=== PATIENT | female | born 1985 | race Caucasian/White ===

== ENCOUNTER 2020-10-16 08:11 | Outpatient (REF) | payer OTHER, SELFPAY ==
[2020-10-17 08:53] LABS: BV Int Neg Control Negative (Negative); BV Int Pos Control Positive (Positive)
[2020-10-17 13:32] LABS: C. trachomatis RNA TMA NOT DETECTED (NOT DETECTED); N. gonorrhoeae RNA TMA NOT DETECTED (NOT DETECTED)
[2020-10-20 06:57] LABS: HPV mRNA E6/E7 rflx Not Detected (Not Detected)
== END 2020-10-16 08:12 | disposition home or self-care (01) ==
LOC: HO.LAB 08:11
PROVIDERS: PCP Internal Medicine; Visit Provider Advanced Practice Midwife
DX: Z01.419 Encounter for gynecological examination (general) (routine) without abnormal findings (principal); E10.65 Type 1 diabetes mellitus with hyperglycemia; E66.01 Morbid (severe) obesity due to excess calories; B37.2 Candidiasis of skin and nail; Z68.42 Body mass index [BMI] 45.0-49.9, adult; Z20.2 Contact with and (suspected) exposure to infections with a predominantly sexual mode of transmission; Z88.8 Allergy status to other drugs, medicaments and biological substances
CPT/HCPCS: 36415; 87480; 87491; 87510; 87591; 87624; 87660; 88142; 99395

== ENCOUNTER → 2021-05-09 13:07 | Outpatient (BNVA) | payer OTHER, SELFPAY | PROVIDERS: PCP Internal Medicine; Referring Provider Internal Medicine; Visit Provider Physician Assistant ==

== ENCOUNTER → 2021-06-01 07:07 | Outpatient (BNVA) | payer OTHER, SELFPAY | PROVIDERS: PCP Internal Medicine; Visit Provider Surgery ==

== ENCOUNTER → 2021-07-09 08:06 | Outpatient (BNVA) | payer OTHER, SELFPAY | PROVIDERS: PCP Internal Medicine; Visit Provider Surgery ==

== ENCOUNTER 2021-07-12 10:21 | Outpatient (REF) | payer OTHER, SELFPAY ==
--- NOTE | ~2021-07-12 | XR_ITS ---
EXAMINATION: XR CHEST CLINICAL INFORMATION: Morbid obesity due to excess calories COMPARISON: None TECHNIQUE: 2 views of the chest were obtained. FINDINGS: Normal symmetric lung volumes. No parenchymal consolidation. No pleural effusion. No pneumothorax. Cardiomediastinal silhouette and pulmonary vascularity are within normal limits. No acute osseous abnormalities. XR/XR chest 2V IMPRESSION: Unremarkable examination.
--- NOTE | 2021-07-12 10:35 | ECG_ITS ---
Test Reason : obesity Blood Pressure : / mmHG Vent. Rate : 077 BPM Atrial Rate : 077 BPM P-R Int : 148 ms QRS Dur : 084 ms QT Int : 388 ms P-R-T Axes : 071 045 031 degrees QTc Int : 439 ms Normal sinus rhythm Normal ECG No previous ECGs available Referred By: Kingsley Vidal Electronically Signed By:KHOA STRINGER MD
[2021-07-12 10:51] LABS: MANUAL DIFF FLAG NO
[2021-07-12 11:25] LABS: Basophils Percent Auto 0.6 % (0-2); Eosinophils Absolute Auto 0.2 X10*3/uL (0.0-0.4); Eosinophils Percent Auto 3.5 % (0-4); Hematocrit 38.4 % (37-47); Hemoglobin 12.4 g/dl (12.0-16.0); Imm Gran Abs Auto 0.02 X10*3/uL (0.00-0.03); Imm Gran Pct Auto 0.4 % (0.0-0.4); Lymphocytes Absolute Auto 1.5 X10*3/uL (1.2-4.9); Lymphocytes Percent Auto 30.8 % (20-40); Mean Corpuscular HGB Conc 32.3 g/dl (31.0-35.0); Mean Corpuscular Hemoglobin 26.6 pg (27.0-33.0); Mean Corpuscular Volume 82.4 fL (80-98); Mean Platelet Volume 11.2 fL (9.4-12.3); Monocytes Absolute Auto 0.4 X10*3/uL (0.1-1.2); Monocytes Percent Auto 8.8 % (2-11); Neutrophils Absolute Auto 2.7 X10*3/uL (2.0-8.3); Neutrophils Percent Auto 55.9 % (45-73); Platelet Count 249 X10*3/uL (160-400); Red Blood Count 4.66 X10*6/uL (4.20-5.50); White Blood Count 4.9 X10*3/uL (4.8-10.8)
[2021-07-12 11:40] LABS: Estimated Average Glucose 266 mg/dL; Hemoglobin A1c % 10.9 %
[2021-07-12 11:41] LABS: Alanine Aminotransferase 14 U/L (0-31); Albumin Level 4.1 g/dL (3.5-5.0); Alkaline Phosphatase 138 U/L (39-117); Anion Gap 14 (12-20); Aspartate Amino Transferase 12 U/L (5-31); Bilirubin Total 0.3 mg/dL (0.0-1.0); Blood Urea Nitrogen 12 mg/dL (9-16); C Reactive Protein 4.59 mg/dL (< or = 0.50); Calcium 9.3 mg/dL (8.4-10.2); Carbon Dioxide 24 mmol/L (22-29); Chloride 105 mmol/L (96-108); Cholesterol 246 mg/dL; Estimated Glomerular Filt Rate > 60; Glucose Random 92 mg/dL (60-115); HDL Cholesterol 65 mg/dL; Iron 32 mcg/dL (30-160); LDL Cholesterol Calculated 158 mg/dl; Percent Iron Saturation 11 % (15-50); Potassium 3.9 mmol/L (3.3-5.1); Sodium 139 mmol/L (135-145); Total Iron Binding Capacity 301 mcg/dL (228-428); Total Protein 6.9 g/dL (6.5-8.0); Triglycerides 116 mg/dL; Unsaturated Iron Binding 269 ug/dL
[2021-07-12 11:55] LABS: HBsAGNum1 0.17 S/CO (0.00-0.99); HIV AB/AG Nonreactive (Nonreactive); HIV Num 1 0.08 S/CO (0.00-0.99); Hepatitis B Surface Antigen Negative (Negative); ~HepC Num1 0.04 S/CO (0.00-0.79); ~Hepatitis C Antibody Nonreactive (Nonreactive)
[2021-07-12 12:04] LABS: Ferritin 73 ng/mL (10-122); Insulin 17 uU/mL (2-29); TSH reflex Free T4 3.57 uIU/mL (0.32-4.0); Vitamin D 25-OH Total 9.6 ng/mL (>30)
[2021-07-12 12:35] LABS: Folate 11.8 ng/mL (> or = 4.0); Vitamin B12 319 pg/mL (200-900)
[2021-07-13 04:17] LABS: Syphilis Screen Nonreactive (Nonreactive)
[2021-07-13 15:51] LABS: Calcium (PTHI) 9.3 mg/dL (8.6-10.2); PTHI 64 pg/mL (14-64)
[2021-07-17 00:27] LABS: Zinc 64 mcg/dL (60-130)
[2021-07-17 17:26] LABS: Vitamin A 37 mcg/dL (38-98)
[2021-07-18 15:12] LABS: Vitamin B1 10 nmol/L (8-30)
== END 2021-07-12 10:22 | disposition home or self-care (01) ==
LOC: HO.XRAY 10:21
PROVIDERS: Advanced Practice Midwife; PCP Internal Medicine; Visit Provider Surgery
DX: E10.65 Type 1 diabetes mellitus with hyperglycemia (principal); E78.5 Hyperlipidemia, unspecified; I10 Essential (primary) hypertension; Z20.2 Contact with and (suspected) exposure to infections with a predominantly sexual mode of transmission; E66.01 Morbid (severe) obesity due to excess calories
CPT/HCPCS: 36415; 71046; 80053; 80061; 82306; 82607; 82728; 82746; 83036; 83525; 83540; 83970; 84425; 84443; 84590; 84630; 85025; 86140; 86780; 86803; 87340; 87389; 93005

== ENCOUNTER 2021-07-18 13:24 | Outpatient (REF) | payer OTHER, SELFPAY ==
[2021-07-20 10:10] LABS: H Pylori Breath Test Negative (Negative)
== END 2021-07-18 13:25 | disposition home or self-care (01) ==
LOC: HO.LNP 13:24
PROVIDERS: Surgery; PCP Internal Medicine; Referring Provider Internal Medicine; Visit Provider Physician Assistant Surgical
DX: Z11.0 Encounter for screening for intestinal infectious diseases (principal)
CPT/HCPCS: 83013; 99211

== ENCOUNTER → 2021-07-24 12:25 | Outpatient (BNVA) | payer OTHER, SELFPAY | PROVIDERS: PCP Internal Medicine; Referring Provider Internal Medicine; Visit Provider Dietitian, Registered | DX: E66.01 Morbid (severe) obesity due to excess calories (principal); Z68.42 Body mass index [BMI] 45.0-49.9, adult | CPT/HCPCS: 97802 ==

== ENCOUNTER → 2021-08-06 07:57 | Outpatient (BNVA) | payer OTHER, SELFPAY | PROVIDERS: PCP Internal Medicine; Visit Provider Surgery ==

== ENCOUNTER 2021-08-08 09:33 | Outpatient (REF) | payer OTHER, SELFPAY ==
--- NOTE | ~2021-08-08 | FL_ITS ---
EXAMINATION: FL UPPER GI WITH AIR-CONTRAST. CLINICAL INFORMATION: Morbid severe obesity due to excess calories. COMPARISON: None TECHNIQUE: A routine upper GI air-contrast study was performed in the upright, supine and prone lying positions. FINDINGS: Following oral administration of thick barium and effervescent granules, there is normal propagation of the bolus from the oral cavity through the pharynx, esophagus into the stomach without any evidence of obstruction, narrowing or stricture. On placing the patient supine and prone, the course, caliber and peristalsis of the stomach, duodenal bulb and the sweep are normal. The mucosal pattern of the stomach and the duodenum is normal. FLUOROSCOPY TIME: 1.8 minutes DOSE AREA PRODUCT: 40.237 uGy-m2 (microgray-meter squared) FL/FL upper GI series IMPRESSION: Moderate gastroesophageal reflux without hiatal hernia.
--- NOTE | ~2021-08-08 | US_ITS ---
EXAMINATION: US COMPLETE ABDOMEN WITH LIVER ELASTOGRAPHY CLINICAL INFORMATION: Obesity COMPARISON: None. TECHNIQUE: Real-time imaging of the abdominal viscera. Noninvasive ultrasound liver fibrosis assessment is performed using Koko ElastPQ point quantification shear wave elastography (pSWE) with a C5-2 MHz transducer. Multiple elastography samples are obtained. FINDINGS: PANCREAS: The visualized pancreatic head and body are normal in appearance. The remainder of the pancreas is obscured from visualization by the overlying bowel gas. ABDOMINAL AORTA: The proximal, middle, and distal aortic segments are normal in caliber. INFERIOR VENA CAVA: Visualized portions are normal. LIVER: Liver echotexture is increased. The liver is enlarged. The liver contour is normal. No focal lesion or intrahepatic biliary duct dilatation. The right lobe measures 21 cm in length. The left lobe measures 13 cm in length. Portal flow is normal/hepatopedal Shear wave liver elastography median stiffness is 1.07 m/s (reference: normal median stiffness is 1.3 m/s or less). IQR/median stiffness to assess sampling precision is 0.14 (reference: good quality data set is IQR/median stiffness of 0.15 or less). GALLBLADDER: Normal. The gallbladder is physiologically distended without evidence of stones, sludge, polyps, wall thickening or pericholecystic fluid. COMMON BILE DUCT: Normal in caliber measuring 0.3 cm in diameter. RIGHT KIDNEY: Normal. No hydronephrosis. No renal calculi or focal parenchymal lesions. The kidney measures 12.7 cm in maximum dimension. LEFT KIDNEY: Normal. No hydronephrosis. No renal calculi or focal parenchymal lesions. The kidney measures 11.9 cm in maximum dimension. SPLEEN: Slightly enlarged.. The spleen measures 13.7 cm in maximum dimension. FREE FLUID: None. US/US abdomen comp w elastography IMPRESSION: 1. Impression: Enlarged echogenic liver probably representing fatty infiltration. Slightly enlarged spleen. Limited visualization of the tail the pancreas. 2. Liver elastography: Adequate liver sampling. Normal liver stiffness. REFERENCE: Society of Radiologists in Ultrasound Liver Stiffness Thresholds (2020): LIVER STIFFNESS THRESHOLDS: *Liver Stiffness equal or less than 1.3 m/s: High probability of being normal. *Liver Stiffness less than 1.7 m/s: In the absence of other known clinical signs, rules out compensated advanced chronic liver disease. *Liver Stiffness 1.7-2.1 m/s: Suggestive of compensated advanced chronic liver disease but need further test for confirmation. *Liver Stiffness over 2.1 m/s: Rules in compensated advanced chronic liver disease. *Liver Stiffness over 2.4 m/s: Suggestive of clinically significant portal hypertension. QUALITY OF DATA SET: *IQR/Median value equal or less than 0.15 implies a quality data set. *IQR/Median value over 0.15 implies a poor quality data set. SIGNIFICANT CHANGE FROM PRIOR EXAM: Significant change if liver stiffness measurement is 10% or greater from prior exam. OTHER CONSIDERATIONS: The stage of liver fibrosis may be overestimated in the setting of acute hepatitis, liver inflammation, elevated liver function tests, hepatic vascular congestion, obstructive cholestasis, non-fasting state, and infiltrative diseases such as amyloidosis and lymphoma. In some patients with NAFLD, the liver stiffness thresholds for compensated advanced chronic liver disease may be lower. In causes other than viral hepatitis and NAFLD, liver stiffness thresholds are not well established.
== END 2021-08-08 09:34 | disposition home or self-care (01) ==
LOC: HO.US 09:33
PROVIDERS: PCP Internal Medicine; Visit Provider Surgery
DX: E10.65 Type 1 diabetes mellitus with hyperglycemia (principal); E78.5 Hyperlipidemia, unspecified; I10 Essential (primary) hypertension; E66.01 Morbid (severe) obesity due to excess calories
CPT/HCPCS: 74240; 76705; 76981

== ENCOUNTER → 2021-08-10 13:13 | Outpatient (BNVA) | payer OTHER, SELFPAY | PROVIDERS: PCP Internal Medicine; Referring Provider Internal Medicine; Visit Provider Physician Assistant ==

== ENCOUNTER 2021-09-10 08:06 | Outpatient (REF) | payer OTHER, SELFPAY ==
[2021-09-11 05:47] LABS: CT PCR NOT DETECTED (Not Detect.); NG PCR NOT DETECTED (Not Detect.)
== END 2021-09-10 08:07 | disposition home or self-care (01) ==
LOC: HO.LAB 08:06
PROVIDERS: Advanced Practice Midwife; PCP Internal Medicine; Visit Provider Surgery
DX: Z20.2 Contact with and (suspected) exposure to infections with a predominantly sexual mode of transmission (principal); E66.01 Morbid (severe) obesity due to excess calories
CPT/HCPCS: 87491; 87591

== ENCOUNTER → 2021-10-18 09:40 | Outpatient (BNVA) | payer OTHER, SELFPAY | PROVIDERS: PCP Internal Medicine; Referring Provider Internal Medicine; Visit Provider Physician Assistant ==

== ENCOUNTER → 2021-10-19 07:03 | Outpatient (BNVA) | payer OTHER, SELFPAY | PROVIDERS: PCP Internal Medicine; Visit Provider Surgery ==

== ENCOUNTER → 2021-10-26 08:13 | Outpatient (BNVA) | payer OTHER, SELFPAY | PROVIDERS: PCP Internal Medicine; Visit Provider Surgery ==

== ENCOUNTER → 2021-11-01 15:12 | Outpatient (BNVA) | payer OTHER, SELFPAY | PROVIDERS: PCP Internal Medicine; Referring Provider Internal Medicine; Visit Provider Surgery ==

== ENCOUNTER → 2021-11-02 09:05 | Outpatient (BNVA) | payer OTHER, SELFPAY | PROVIDERS: PCP Internal Medicine; Referring Provider Internal Medicine; Visit Provider Surgery ==

== ENCOUNTER → 2021-11-05 14:43 | Outpatient (BNVA) | payer OTHER, SELFPAY | PROVIDERS: PCP Internal Medicine; Referring Provider Internal Medicine; Visit Provider Physician Assistant Surgical ==

== ENCOUNTER 2021-11-06 08:00 | Inpatient (IN) | payer OTHER, SELFPAY ==
[2021-10-31 16:10] VITALS: BMI 42.3
[2021-11-01 10:20] LABS: MANUAL DIFF FLAG NO
[2021-11-01 10:35] LABS: Basophils Percent Auto 0.6 % (0-2); Eosinophils Absolute Auto 0.2 X10*3/uL (0.0-0.4); Eosinophils Percent Auto 3.8 % (0-4); Hematocrit 40.3 % (37.0-47.0); Hemoglobin 12.7 g/dl (12.0-16.0); Imm Gran Abs Auto 0.02 X10*3/uL (0.00-0.03); Imm Gran Pct Auto 0.4 % (0.0-0.4); Lymphocytes Absolute Auto 0.9 X10*3/uL (1.2-4.9); Lymphocytes Percent Auto 17.3 % (20-40); Mean Corpuscular HGB Conc 31.5 g/dl (31.0-35.0); Mean Corpuscular Hemoglobin 26.6 pg (27.0-33.0); Mean Corpuscular Volume 84.5 fL (80.0-98.0); Mean Platelet Volume 10.9 fL (9.4-12.3); Monocytes Absolute Auto 0.4 X10*3/uL (0.1-1.2); Monocytes Percent Auto 6.9 % (2-11); Neutrophils Absolute Auto 3.7 x10*3/uL (2.0-8.3); Platelet Count 241 X10*3/uL (160-400); Red Blood Count 4.77 X10*6/uL (4.20-5.50); Red Cell Distribution Width 12.9 % (11.0-16.0); White Blood Count 5.3 X10*3/uL (4.8-10.8)
[2021-11-01 10:46] LABS: Estimated Average Glucose 258 mg/dL; Hemoglobin A1c % 10.6 %
[2021-11-01 10:48] LABS: Prothrombin Time 11.3 SEC (9.9-13.0)
[2021-11-01 10:51] LABS: Partial Thromboplastin Time 37.2 SEC (24.1-38.0)
[2021-11-01 10:53] LABS: Alanine Aminotransferase 17 U/L (0-31); Albumin Level 3.7 g/dL (3.5-5.0); Alkaline Phosphatase 111 U/L (39-117); Anion Gap 15 (12-20); Aspartate Amino Transferase 19 U/L (5-31); Bilirubin Total 0.5 mg/dL (0.0-1.0); Blood Urea Nitrogen 9 mg/dL (9-16); C Reactive Protein 4.68 mg/dL (< or = 0.50); Calcium 9.1 mg/dL (8.4-10.2); Carbon Dioxide 24 mmol/L (22-29); Chloride 104 mmol/L (96-108); Cholesterol 279 mg/dL; Creatinine Clr Calc Pharmacy 134.1; Estimated Glomerular Filt Rate > 60; Glucose Random 293 mg/dL (60-115); HDL Cholesterol 50 mg/dL; LDL Cholesterol Calculated 195 mg/dl; Potassium 4.5 mmol/L (3.3-5.1); Sodium 138 mmol/L (135-145); Total Protein 6.5 g/dL (6.5-8.0); Triglycerides 173 mg/dL
[2021-11-01 11:21] LABS: TSH reflex Free T4 3.09 uIU/mL (0.32-4.0)
[2021-11-01 12:05] LABS: Insulin 4 uU/mL (2-29)
--- NOTE | 2021-11-02 23:28 | P.HPSUR_ITS ---
Pre-Procedural Eval Section A Date of Service: 11/02/21 The patient is an INPATIENT: Yes The History & Physical has been completed within 30 days and I have reviewed it.: Yes Section B Chief Complaint: obesity Relevant Family History (Specify if Yes): No Relevant Social History: None Present Medications: None Medical History: No relevant PMH History of Previous Operations: No relevant previous surgery Allergies: Allergies Allergy/AdvReac Type Severity Reaction Status Date / Time insulin glargine Allergy Unknown malaise/fal Verified 10/26/21 15:04 [Lantus U-100 Insulin] ls Review of Systems Sugical H&P ROS: Negative: Constitution, Cardiovascular, Respiratory, Neurological, Psychiatric, Hem-Onc, Allergic/Immunologic, Gastrointestinal, Genitourinary, Musculoskeletal, Integumentary, Endocrine and Eyes /Ears/Nose/Throat Exam Surgical H&P Exam: Normal: HEENT, Normal: Heart, Normal: Lungs, Normal: Extremities, Normal: Abdomen, Normal: Skin and Normal: Neurological Plan Diagnosis/Plan: Unchanged I have reviewed the history and physical and performed a pertinent physical examination on my patient. No changes have occurred unless specified.
--- NOTE | 2021-11-05 12:26 | P.CONAN_ITS ---
Documented by User: Manda Johnston NP 11/05/21 12:27 HPI - Anesthesia Eval Consult details Narrative: 36yo F for Gastrectomy Sleeve,EGD,poss diaphragmatic hernia,poss ventral hernia,poss open, PMFSH Active Problems Active Problems: All Active Problems (Updated 08/01/21 @ 19:48 by Kingsley Vidal MD) Vitamin B12 deficiency (Acute) Vitamin A deficiency (Acute) Adjustment disorder, unspecified (Acute) Hyperlipidemia (Acute) Hypertension (Acute) Morbid obesity (Acute) Lumbar spine pain (Acute) Family history of cancer (Acute) Diabetes mellitus type 1, uncontrolled (Acute) Past Medical History Medical History Chronic fatigue Diabetes mellitus type 1, uncontrolled Elevated TSH Hyperlipidemia Hypertension Morbid obesity Morbid obesity with BMI of 45.0-49.9, adult Subclinical hypothyroidism Yeast infection Family History Family History (Updated 05/31/21 @ 14:45 by José Miguel Mcdonough Westley) Father Hx of diabetes mellitus Cardiovascular disease Mother S/P lumpectomy of breast Maternal Grandfather Family hx of colon cancer Sister Lymphoma Maternal Aunt Brain cancer Daughter No problems noted. Son Legally blind Epilepsia Surgical History Surgical History Hx of tubal ligation Social History Social History (Updated 05/31/21 @ 14:46 by José Miguel Mcdonough Westley) Are you a primary critical care rn to a significant other at home: No Do you presently have visiting nurse or other home services: Yes ([employer] for 12 year old son) Alcohol intake: never Patient Tobacco Use Status: Never used Tobacco Use of substances other than those prescribed or required for medical reasons: No Have you been hit, kicked, punched, or otherwise hurt by someone within the past year? If so, by whom?: No Are you DNR?: No Advance Directives: No Advance Directives Information Provided: Yes Advance Directives on File: No Recently lost weight without trying: No Patient : No FDLMP: 10/25/2021 : No Poor oral hygiene: No Gender identity: Female Meds Allergies Allergy/AdvReac Type Severity Reaction Status Date / Time insulin glargine Allergy Unknown malaise/fal Verified 11/06/21 08:21 [Lantus U-100 Insulin] Home Medications Medication Instructions Recorded Confirmed Last Taken Type atorvastatin 20 mg tablet 20 mg PO DAILY 07/17/20 10/26/21 Unknown History valsartan 40 mg tablet 40 mg PO DAILY 07/17/20 10/26/21 Unknown History ondansetron HCl 4 mg tablet 4 mg PO Q12H PRN 11/03/21 11/03/21 Unknown History Exam Exam Date and Time: November 05, 2021 1226 Height,Weight and Vital Signs: Height 5 ft 8 in Weight 126.099 kg Pertinent Lab Results Pertinent Lab Results: Laboratory Tests 11/01/21 11/01/21 11/01/21 10:10 10:18 10:18 WBC 5.3 RBC 4.77 Hgb 12.7 Hct 40.3 MCV 84.5 MCH 26.6 L MCHC 31.5 RDW 12.9 Plt Count 241 MPV 10.9 Immature Gran % (Auto) 0.4 Neut % (Auto) 71.0 Lymph % (Auto) 17.3 L [place] % (Auto) 6.9 Eos % (Auto) 3.8 Baso % (Auto) 0.6 Lymph # (Auto) 0.9 L [place] # (Auto) 0.4 Eos # (Auto) 0.2 Baso # (Auto) 0.0 Abs Immat Gran (auto) 0.02 Absolute Neuts (auto) 3.7 Absolute Nucleated RBC 0.000 Nucleated RBC % (auto) 0.0 PT 11.3 INR 1.0 APTT 37.2 Sodium Potassium Chloride Carbon Dioxide Anion Gap BUN Creatinine Estim Creat Clear Calc Estimated GFR Random Glucose Estimat Average Glucose Hemoglobin A1c % Insulin Level Calcium Total Bilirubin AST ALT Alkaline Phosphatase C-Reactive Protein Total Protein Albumin Triglycerides Cholesterol LDL Cholesterol, Calc HDL Cholesterol TSH Blood Type O Positive Antibody Screen NEGATIVE 11/01/21 11/01/21 10:18 10:18 WBC RBC Hgb Hct MCV MCH MCHC RDW Plt Count MPV Immature Gran % (Auto) Neut % (Auto) Lymph % (Auto) [place] % (Auto) Eos % (Auto) Baso % (Auto) Lymph # (Auto) [place] # (Auto) Eos # (Auto) Baso # (Auto) Abs Immat Gran (auto) Absolute Neuts (auto) Absolute Nucleated RBC Nucleated RBC % (auto) PT INR APTT Sodium 138 Potassium 4.5 Chloride 104 Carbon Dioxide 24 Anion Gap 15 BUN 9 Creatinine 0.82 Estim Creat Clear Calc 134.1 Estimated GFR > 60 Random Glucose 293 H Estimat Average Glucose 258 Hemoglobin A1c % 10.6 Insulin Level 4 Calcium 9.1 Total Bilirubin 0.5 AST 19 D ALT 17 Alkaline Phosphatase 111 C-Reactive Protein 4.68 H Total Protein 6.5 Albumin 3.7 Triglycerides 173 Cholesterol 279 LDL Cholesterol, Calc 195 HDL Cholesterol 50 D TSH 3.09 Blood Type Antibody Screen Narrative Narrative: EKG 06/2021 Vent. Rate : 077 BPM ? ? Atrial Rate : 077 BPM ?? P-R Int : 148 ms? QRS Dur : 084 ms ? ? QT Int : 388 ms ? ? ? P-R-T Axes : 071 045 031 degrees ?? QTc Int : 439 ms ? Normal sinus rhythm Normal ECG No previous ECGs available Assessment and Plan Assessment Anesthesia Assessment: Chart Reviewed Documented by User: Phyllis Mcdonald MD 11/06/21 10:03 [facility] Past Medical History Medical History Chronic fatigue Diabetes mellitus type 1, uncontrolled Elevated TSH Hyperlipidemia Hypertension Morbid obesity Morbid obesity with BMI of 45.0-49.9, adult Subclinical hypothyroidism Yeast infection Family History Family History (Updated 05/31/21 @ 14:45 by KYA Santiago) Father Hx of diabetes mellitus Cardiovascular disease Mother S/P lumpectomy of breast Maternal Grandfather Family hx of colon cancer Sister Lymphoma Maternal Aunt Brain cancer Daughter No problems noted. Son Legally blind Epilepsia Family history of problems with anesthesia: No Surgical History Surgical History Hx of tubal ligation History of Problems with Anesthesia: No Social History Social History (Updated 05/31/21 @ 14:46 by KYA Santiago) Are you a primary critical care rn to a significant other at home: No Do you presently have visiting nurse or other home services: Yes ([employer] for 12 year old son) Alcohol intake: never Patient Tobacco Use Status: Never used Tobacco Use of substances other than those prescribed or required for medical reasons: No Have you been hit, kicked, punched, or otherwise hurt by someone within the past year? If so, by whom?: No Are you DNR?: No Advance Directives: No Advance Directives Information Provided: Yes Advance Directives on File: No Recently lost weight without trying: No Patient : No FDLMP: 10/25/2021 : No Poor oral hygiene: No Gender identity: Female Meds Allergies Allergy/AdvReac Type Severity Reaction Status Date / Time insulin glargine Allergy Unknown malaise/fal Verified 11/06/21 08:21 [Lantus U-100 Insulin] Home Medications Medication Instructions Recorded Confirmed Last Taken Type atorvastatin 20 mg tablet 20 mg PO DAILY 07/17/20 10/26/21 Unknown History valsartan 40 mg tablet 40 mg PO DAILY 07/17/20 10/26/21 Unknown History ondansetron HCl 4 mg tablet 4 mg PO Q12H PRN 11/03/21 11/03/21 Unknown History Exam Airway Mallampati Class: II TM Dist: >3cm Neck ROM: Full Assessment and Plan Assessment Anesthesia Assessment: Anesthesia Plan Discussed Final Anesthetic Review Family History of Problems with Anesthesia: No History of Problems with Anesthesia: No NPO: Yes ASA Class: III Final Preanesthetic Review: No Changes in Pt Med Stat, Meds/Allgs Chart Reviewed, Consent Obtained/Reviewed and Anes Risks/Benef Reviewed Patient Risk: Intermediate Procedure Risk: Intermediate Anesthetic Plan Anesthetic Plan: GA Disposition: Standard PACU and Inp. Admit - Standard Bed
[2021-11-05 15:10] LABS: COVID-19 Test Negative (Negative)
[2021-11-06] VITALS (9 sets, daily range): BP systolic 135–176; BP diastolic 65–96; PULSE 78–96; RESP 14–18; TEMP 36.5–36.8; O2SAT 97–100
[2021-11-06 08:16] LABS: Glucose, Whole Blood 315 mg/dL (60-115)
--- NOTE | 2021-11-06 08:40 | HE.PHANOTE ---
PATIENT OWN NOVOLOG MIX 70/30 FLEXPEN USING PATIENT OWN INJECTABLES GOES AGAINST CURRENT P&T POLICY. LANTUS DOES NOT WORK FOR PATIENT AND ALSO LISTED AN ADVERSE REACTION. PER MANAGEMENT ALLOWING PATIENT TO USE OWN INSULIN, ONE TIME DOSE ENTERED.
[2021-11-06] MEDS: Lactated Ringers 1,000 ML 100 ML IVCONT ×3 (09:05→21:49)
[2021-11-06] MEDS: Lactated Ringers 1,000 ML 999 ML IV (09:05)
[2021-11-06 10:16] LABS: Glucose, Whole Blood 284 mg/dL (60-115)
--- NOTE | 2021-11-06 12:51 | PM.OP ---
Brief Operative Note Date of Service: 11/06/21 Pre-op diagnosis: Refractory morbid obesity and comorbidities (see below) Post-op diagnosis: same Procedure: INITIAL PATIENT BMI ON PRESENTATION AT OUR OFFICE: 47.2 kg/m2 LAST BMI BEFORE SURGERY: 42.5 kg/m2 COMORBIDITIES: insulin dependent diabetes, hyperlipidemia, hypertension, hypothyroidism, back pain, GERD, liver steatosis, hepatomegaly ?The patient presented to the Weight Management Program with significant obesity that was negatively impacting the patient's comorbidities as listed above.? The program is a phased program with a special focus on preoperative medical weight management to promote substantial weight loss and prepare the patients for the second phase of the program: bariatric surgery. The patient participated in an intensive weekly lifestyle ?intervention and exercise program during which the patient ?has lost between the initial office visit and the last preoperative visit 30.8lbs, or 9.92% of initial actual body weight. It was deemed appropriate for the patient to now have bariatric surgery. In light of the current Covid-19 pandemic and the well documented strong association of obesity and increased risk of worse outcomes if infected with Covid-19 (REFERENCES:https://pubmed.ncbi.nlm.nih.gov/62596418/,?https://pubmed.ncbi.nlm.nih.gov/74163609/), any delay in undergoing bariatric surgery may lead to the patient's worsening health condition and increased?risk of more severe Covid-19 disease if infected. In addition a recent?study from [facility] published in [facility] on 09/17/2021 ([email or web address]) found that, among patients with obesity, substantial weight loss achieved with surgery was associated with improved outcomes of COVID-19 infection. The findings suggest that obesity can be a modifiable risk factor for the severity of COVID-19 infection. In addition, the patient met the BMI-criteria for bariatric surgery based on the BMI on initial presentation. The patient should not be penalized for achieving such weight loss because ?it is not sustainable long-term without surgical intervention and it was achieved in preparation for bariatric surgery ?under my direction and based on my published research ([email or web address]).pdf and?https://www.soard.org/article/[email or web address](97)41330-X/pdf) ?that a 10% preoperative weight loss improves long-term weight loss after surgery and reduces perioperative complications.? Insurance carriers such as [facility] have endorsed my recommendations ?and have included in their policies criteria to include a 10% preoperative weight loss requirement. PROCEDURE: Esophago-gastroscopy, laparoscopic sleeve gastrectomy and laparoscopic gastropexy INDICATIONS: This is a 36 year-old female who was electively scheduled for laparoscopic, possibly open sleeve gastrectomy. The risks and complications of the procedure were discussed with the patient in advance, particularly the possibility of ; pulmonary embolism; staple line leak; bleeding; GERD; cardiac, pulmonary, or renal complications; as well as long-term problems such as insufficient weight loss, vitamin deficiency, strictures, or ulcers. The patient understood all the risks, and was in agreement to proceed with surgery. DESCRIPTION OF PROCEDURE: After informed consent was obtained from the patient, the patient was given preoperative antibiotics, and was transferred to the operating room. After successful induction of general anesthesia, pneumatic compression devices were placed on both lower extremities. An upper endoscopy was performed next. The oropharynx and esophagus appeared to be within normal limits. There was no diaphragmatic hernia present, consistent with the findings of the preoperative upper GI. The stomach was entered. Then after all fluid and air were suctioned and the stomach was fully decompressed, the scope was withdrawn and secured in the mid esophagus. The patient was then prepped and draped in the usual sterile manner, and abdominal access was established at the right upper quadrant with the Mireya technique. A 12 mm blunt port was inserted, and the abdomen was insufflated with CO2 to a pressure of 15 mmHg. Under direct visualization, additional ports were placed, specifically two 5 mm Versi-step ports to the left upper quadrant, and a 5 mm Versi-Step port to the right upper quadrant. 1% lidocaine plain was used to infiltrate all port sites as well as all fascia defects. Following that, the patient was placed in a steep reverse Trendelenburg position. An additional 5 mm port was placed to the right flank for the Mediflex retractor that was used to retract the left lobe of the liver. The gastro-esophageal fat pad was opened with the ultrasonic device (Thunderbeat, Olympus) and the anterior esophagus and hiatus were exposed. The angle of His was opened with the ultrasonic device the fundus of the stomach from any diaphragmatic and splenic attachments. I then opened the gastrocolic ligament between the transverse colon and the greater curvature of the stomach with the ultrasonic device to enter the lesser sac and facilitate the ligation of the short gastric vessels. I started at a mid-point along the greater curvature and using the Thunderbeat, all short gastric vessels were divided all the way to the angle of His until the left patel was completely dissected at its entirety. I then divided the gastro-colic ligament distally to a distance of about 3-4 cm proximal to the esophagus. The stomach was then divided transversely with one Endo THUY-45 purple and 4 THUY-60 articulating orange loads using the AEON stapler and loads. Every effort was made that the gastric sleeve had a tubular shape and an even caliber throughout. Once the sleeve resection was completed, the staple line of the gastric sleeve was reinforced with Hemoclips. The resected stomach was retrieved without difficulty from the Mireya port. A gastropexy was then performed in order to prevent postoperative GERD and partial gastric volvulus. Several interrupted 2.0 Surgidac sutures were placed between the sleeve's staple line and the previously divided greater omentum and gastro-colic ligament using the Endo-Stitch device. ?An upper endoscopy was performed. There was no narrowing at the GE junction. The scope was easily advanced all the way to the pylorus which was clearly visualized. There was no narrowing anywhere and the sleeve's caliber was even throughout. The sleeve's staple line was inspected and there was no evidence of ischemia, bleeding or dehiscence. At that point the gastroscope was withdrawn from the patient?s mouth while we were decompressing the bowel and the stomach from any remaining air. I looked into the lesser sac to see how the sleeve was situating and it was situating well. There was no bleeding from the staple line, spleen, or short gastric vessels. The Mediflex retractor was removed, and the undersurface of the liver was inspected and there was no bleeding. The patient was placed in supine position. I closed the fascial defect of the 12 mm port site with a figure of eight #1 Polysorb suture. Then 100 cc 0.25 % Marcaine plain with 10 mg of Dexamethasone were used to infiltrate the fascial closure as well as all skin incisions. At this point, the abdomen was deflated, all ports were removed under direct vision, and no bleeding was noted from any of the port sites. The skin incisions were irrigated with saline and were closed with 4-0 absorbable monofilament sutures. Steri-Strips and OpSites were used to cover all incisions. The patient was extubated and was transferred in stable condition to the recovery room for further care. I was present and performed all nguyen parts of the procedure. Ms. Shaikh was the records management assistant. There were no residents to assist with this case. Hamilton Vidal MD, PhD, FACS Surgeon: Kingsley Vidal MD Anesthesia: GETA, local and other (TAP block) Was an Dielectric Press Operator used for this Procedure?: Yes Dielectric Press Operator: Joslyn Shaikh Estimated blood loss (mL): 10 IV fluids (mL): 3,000 Urine output (mL): 0 (No Rodriguez to record) Pathology: other (Stomach) Condition: stable Disposition: PACU
--- NOTE | 2021-11-06 12:55 | PM.PNGS ---
Subjective Subjective Date of Service: 11/07/21 Interval history: Patient has mild incisional pain, but was able to ambulate and use the incentive spirometer. She is tolerating phase 1 bariatric diet Physical Exam Vital Signs: Vital Signs: Last Vital Signs Temp 97.7 F 11/06/21 12:44 Pulse 89 11/06/21 12:49 Resp 16 11/06/21 12:49 BP 152/89 H 11/06/21 12:49 Pulse Ox 97 11/06/21 12:49 BMI result Body Mass Index 42.3 GI: Inspection: Yes normal to inspection, Yes incision (clean, dry and intact) and Yes obesity Extrem: Right lower extremity: normal to inspection (no calf tenderness) Left lower extremity: normal to inspection (no calf tenderness) Objective Data Active Medications Hydromorphone HCl (Hydromorphone Hcl 0.5 Mg/0.5 Ml Syringe) 0.5 mg IVPUSH Q5M PRN; Protocol PRN Reason: Pain, Severe (Pain Scale 7-10) Lactated Ringer's (Lr) 1,000 mls @ 100 mls/hr IVCONT .Q10H ELSY Last Admin: 11/06/21 09:05 Dose: 100 mls/hr Documented by: ANIL Promethazine HCl 12.5 mg/ (Sodium Chloride) 50.5 mls @ 202 mls/hr IV ONCE PRN PRN Reason: Nausea and Vomiting Ondansetron HCl (Ondansetron Hcl 4 Mg/2 Ml Vial) 4 mg IVPUSH ONCE PRN PRN Reason: Nausea and Vomiting Labs CBC & Chem 7: 11/07/21 05:17 11/07/21 05:17 Labs: Laboratory Results - last 24 hr 11/05/21 11/06/21 11/06/21 14:35 07:06 10:10 POC Glucose 315 H 284 H COVID-19 (JERI) Negative COVID-19 Clin Com See Note Procedures Date of Service Date of Service: 11/07/21 Progress Note: A&P Assessment and plan (1) Status post sleeve gastrectomy: Status: Acute Assessment and Plan: s/p laparoscopic sleeve gastrectomy and gastropexy Doing well Check am labs. If OK, will discharge home? (2) Morbid obesity: Status: Acute (3) Diabetes mellitus type 1, uncontrolled: Status: Acute (4) Hypertension: Status: Acute (5) Hyperlipidemia: Status: Acute (6) GERD (gastroesophageal reflux disease): Status: Acute (7) Migraines: Status: Acute (8) Depression: Status: Acute (9) Anxiety: Status: Acute (10) Cyst, ovary, dermoid: Status: Acute Fall Risk Details Current Medications: Current Medications Hydromorphone HCl (Hydromorphone Hcl 0.5 Mg/0.5 Ml Syringe) 0.5 mg IVPUSH Q5M PRN; Protocol PRN Reason: Pain, Severe (Pain Scale 7-10) Lactated Ringer's (Lr) 1,000 mls @ 100 mls/hr IVCONT .Q10H ELSY Last Admin: 11/06/21 09:05 Dose: 100 mls/hr Documented by: Promethazine HCl 12.5 mg/ (Sodium Chloride) 50.5 mls @ 202 mls/hr IV ONCE PRN PRN Reason: Nausea and Vomiting Ondansetron HCl (Ondansetron Hcl 4 Mg/2 Ml Vial) 4 mg IVPUSH ONCE PRN PRN Reason: Nausea and Vomiting Time Spent With Patient Time: Total time spent is greater than 50% in coordination of care (as documented) at patient's floor/unit and/or counseling patient: Time with patient: less than 15 minutes Quality Stroke Does the patient have a stroke diagnosis?: No VTE Prior VTE?: No VTE Risk Level:: Surgical - moderate VTE Device Contraindication: N/A - Device Ordered VTE Drug Contraindication: Treatment Not Indicated
--- NOTE | 2021-11-06 12:55 | PM.DS ---
DS: Providers Provider Date of Service: 11/07/21 Date of admission: 11/06/21 08:00 Primary care physician: Rafi Neil MD DS: Summary Hospital Course Hospital Course: ADMITTING DIAGNOSIS: morbid obesity, Type I DM, hyperlipidemia, HTN DISCHARGE DIAGNOSIS: same, s/p laparoscopic sleeve gastrectomy PAST SURGICAL HISTORY: none PROCEDURE: upper endoscopy, laparoscopic sleeve gastrectomy DISCHARGE SUMMARY: History of Present Illness: The patient is a 36 year-old woman with a BMI of 47.2 kg/m2 and associated co-morbidities as described above. The patient had extensive work-up,lost 32 lbs preoperatively and was electively scheduled for laparoscopic, possible open sleeve gastrectomy and gastropexy. Risks and complications of the surgery were discussed with the patient in advance, particularly the possibility of , pulmonary embolism, anastomotic leak, bleeding, bowel injury, GERD, cardiac, renal or pulmonary complications. The patient understood all the risks and was in agreement with the surgical plan. Hospital Course: The patient underwent an uneventful laparoscopic sleeve gastrectomy with gastropexy and repair of diaphragmatic hernia on the day of admission. Postoperatively, the patient was transferred to the surgical floor. The patient received IV Acetaminophen and IV dilaudid for pain control. Patient was started on bariatric phase 1 diet POD #0. On postoperative day one, the patient was feeling well without nausea, vomiting, fevers, or tachycardia. The patient had some mild incisional pain and the abdomen was soft. On the morning of postoperative day one, the patient was continued on 1 ounce of water or ice every half hour. During the day, the patient did fairly well, having some incisional pain, but able to ambulate adequately and to tolerate liquids well. Since the patient is doing well, we decided that the patient was ready to be discharged. The patient was given instructions to follow-up with me next week and to call my office for any fever over 101, persistent abdominal pain, nausea, vomiting, GERD, symptoms of DVT such as calf tenderness, or leg swelling, or pulmonary embolism such as chest pain or shortness of breath. The patient was also instructed to drink 40-60 ounces of liquids per day using the 1-ounce cups. The patient had been given prescriptions for Tylenol for pain, Zofran prn for nausea, and pantoprazole and carafate previously. The patient was encouraged to ambulate and use the incentive spirometer. The patient was allowed to shower, but no baths, and encouraged to stay active at home. All of these instructions were given to the patient personally. All questions were answered and the patient understood all instructions, the instructions were also given to the patient in print. Time Spent with Patient Time attestation: Total time spent providing and/or coordinating discharge services: Discharge coordination time: Less than 30 minutes Quality: Stroke Does the patient have a stroke diagnosis?: No Physical Exam Vital Signs: Vital Signs: Last Vital Signs Temp 97.7 F 11/06/21 12:44 Pulse 89 11/06/21 12:49 Resp 16 11/06/21 12:49 BP 152/89 H 11/06/21 12:49 Pulse Ox 97 11/06/21 12:49 BMI result Body Mass Index 42.3 DS: Data Data Completed and Pending Pending studies at discharge: Pending at discharge 11/06/21 12:01 Surgical [PTH] Routine Labs on day of discharge: Laboratory Results - last 24 hr 11/05/21 11/06/21 11/06/21 14:35 07:06 10:10 POC Glucose 315 H 284 H COVID-19 (JERI) Negative COVID-19 Clin Com See Note Discharge Plan Discharge Anticipated Discharge Date/Time: 11/07/21 10:51 Patient Disposition: Home, Self-Care Discharge Diagnosis: s/p sleeve gastrectomy Referrals: Rafi Neil MD [Primary Care Provider] - 1 Week Discharge Medications: Continued atorvastatin 20 mg Tablet 20 mg PO DAILY 0RF valsartan 40 mg Tablet 40 mg PO DAILY 0RF ondansetron HCl 4 mg tablet 4 mg PO Q12H PRN (Reason: Nausea And Vomiting) 0RF nystatin 100,000 unit/gram ointment 1 appl topical BID Qty: 30 1RF pantoprazole 40 mg tablet,delayed release (DR/EC) 40 mg PO DAILY Qty: 30 2RF sucralfate 100 mg/mL suspension 10 ml PO BID Qty: 400 2RF Held insulin asp prt-insulin aspart [Novolog Mix 70-30FlexPen U-100] 100 unit/mL (70-30) insulin pen See Rx Instructions subcut DAILY Qty: 15 6RF Hold Instructions: Discuss dosing with Dr Vidal Rx Instructions: 53 units in the am, 55 units in the pm subcut daily; Discontinued vitamin A palmitate 10,000 unit capsule 10,000 unit PO .COMPLEX Qty: 30 1RF Rx Instructions: 10,000 units PO one per day; cholecalciferol (vitamin D3) 125 mcg (5,000 unit) capsule 125 mcg PO DAILY Qty: 30 2RF mecobalamin (vitamin B12) 1,000 mcg tablet,disintegrating 1,000 mcg sublingual DAILY Qty: 30 2RF Rx Instructions: place tablet under tongue and allow to dissolve for at least30 secs before swallowing nystatin 100,000 unit/gram powder 1 appl topical DAILY Qty: 30 1RF polyethylene glycol 3350 [Miralax] 17 gram powder in packet 17 g PO DAILY Qty: 14 0RF Rx Instructions: Mix each packet with 8oz of water and do 7 packets on 11/04/21 and another 7 packets on 11/05/21 Discharge Orders: Discharge Order (Routine); Ordered 11/07/21 Ordered By: Kingsley Vidal Diet: other Activity on Discharge: No heavy lifting Stand Alone Forms: Patient Portal Discharge page Care Plan Goals: weight loss Health Concerns: morbid obesity Plan of Treatment: No tub baths, sex or returning to work until discussed at first post op appointment. No exercise, alcohol, tobacco or illegal drug use. Continue to use incentive spirometer hourly while awake. Walk in home for 5- 10 minutes every 2 hours during the first week. Continue phase 1 diet today and start phase 2 diet tomorrow morning. Follow all instructions in the bariatric handbook and call with any questions. 1. Please call your doctor or come back to the emergency room should any new symptoms arise. 2. You will receive a courtesy call from [facility] 24-48 hours after discharge. 3. Activity: abstain from alcohol, practice limited stair climbing, no bending, no driving, no exercise, no illicit substances, no lifting, no sex, no tub bath, no work. 4. Diet: continue as discussed with Dr. Vidal. 5. Dressing Change/Wound Care: Do not change or remove surgical dressings unless they are wet or soiled. 6. Call your doctor if: - Your temperature exceeds 101.5 F - You experience excessive pain or swelling - You have an unexpected reaction to medication - You have excessive bleeding - You experience continued vomiting/nausea - Your incision begins to separate - Your incision shows signs of infection such as increased redness, swelling, excessive pain, heat, or drainage (light blood or clear fluid is normal) 7. General instructions: No lifting greater than 5 lbs for the next 4 weeks[address] driving within 24 hours of taking narcotic pain medications. If you do not move your bowels in the next 2 days, please take milk of magnesia over the counter. Please follow the post op diet and do not advance your diet until you are seen in the office in about 2 weeks. Please walk around your home every hour or two to prevent blood clots from forming in your legs. You do not need to wake from sleeping to walk. Please sleep in a bed or couch to prevent kinking at the hips and knees. Please take your incentive spirometer (your lung ground school instructor) home with you and use it for the next few days to prevent pneumonias. You may shower, no hot tubs, baths or swimming pools. Please call the office with any questions or concerns such as increasing abdominal pain, fever, chills, shortness of breath, chest pain, leg pain or swelling, or redness or drainage from your incisions. Do not hesitate to contact the office with any questions at . The patient's medical history has been reviewed and they are considered low risk for post op DVT and therefore DVT prophylaxis is not considered necessary. Travel after surgery was reviewed. The patient has not disclosed any travel plans during the first 30 days after surgery and they have been advised that within the first 30 days after surgery any bus, plane, train or car travel over 2 hours in duration is contraindicated due to the possibility of developing blood clots from immobility. Any travel, needs to include periods of ambulation of 10 minutes in duration every 2 hours. The patient was instructed to discuss any plans for travel during this period with their bariatric surgeon. Assessment: stable, post op sleeve gastrectomy Discharge Date/Time: 11/07/21 09:15
[2021-11-06 14:03] LABS: Hematocrit 39.8 % (37.0-47.0); Hemoglobin 12.8 g/dl (12.0-16.0)
[2021-11-06] MEDS: Famotidine/PF 20 MG/2 ML VIAL IVPUSH ×2 (14:15→20:13)
[2021-11-06 14:23] LABS: Anion Gap 15 (12-20); Blood Urea Nitrogen 8 mg/dL (9-16); Calcium 9.3 mg/dL (8.4-10.2); Carbon Dioxide 25 mmol/L (22-29); Chloride 103 mmol/L (96-108); Creatinine Clr Calc Pharmacy 148.7; Estimated Glomerular Filt Rate > 60; Glucose Random 220 mg/dL (60-115); Potassium 3.9 mmol/L (3.3-5.1); Sodium 139 mmol/L (135-145)
[2021-11-06 14:39] LABS: Glucose, Whole Blood 229 mg/dL (60-115)
[2021-11-06] MEDS: Metoclopramide HCl 10 MG/2 ML VIAL IVPUSH (15:11)
[2021-11-06 15:35] LABS: Glucose, Whole Blood 209 mg/dL (60-115)
[2021-11-06] MEDS: Insulin Lispro 100 UNIT/ML 3 ML VIAL SUBCUT ×3 (15:46→23:04)
[2021-11-06] MEDS: ceFAZolin Sodium/Dextrose,Iso 2 GM/50 ML PIGGYBACK IV (16:30)
[2021-11-06 20:04] LABS: Glucose, Whole Blood 210 mg/dL (60-115)
[2021-11-06] MEDS: ondansetron HCL 4 MG/2 ML VIAL IVPUSH (20:13)
[2021-11-06] MEDS: 0.9 % Sodium Chloride Flush 3 ML SYRINGE IVFLUSH (20:21)
[2021-11-06 23:01] LABS: Glucose, Whole Blood 208 mg/dL (60-115)
[2021-11-07] VITALS: BP 136/70; PULSE 98; RESP 18; TEMP 36.9; O2SAT 99
[2021-11-07 02:04] LABS: Glucose, Whole Blood 199 mg/dL (60-115)
[2021-11-07] MEDS: Insulin Lispro 100 UNIT/ML 3 ML VIAL SUBCUT ×2 (02:16→06:21)
[2021-11-07 03:36] VITALS: BP 129/77; PULSE 83; RESP 18; TEMP 36.8; O2SAT 98
[2021-11-07] MEDS: ondansetron HCL 4 MG/2 ML VIAL IVPUSH (03:43)
[2021-11-07 05:48] LABS: MANUAL DIFF FLAG NO
[2021-11-07 05:54] LABS: Glucose, Whole Blood 205 mg/dL (60-115)
[2021-11-07 05:58] LABS: Basophils Percent Auto 0.1 % (0-2); Eosinophils Percent Auto 0.3 % (0-4); Hematocrit 35.4 % (37.0-47.0); Hemoglobin 11.5 g/dl (12.0-16.0); Imm Gran Abs Auto 0.01 X10*3/uL (0.00-0.03); Imm Gran Pct Auto 0.1 % (0.0-0.4); Lymphocytes Absolute Auto 1.3 X10*3/uL (1.2-4.9); Lymphocytes Percent Auto 18.8 % (20-40); Mean Corpuscular HGB Conc 32.5 g/dl (31.0-35.0); Mean Corpuscular Hemoglobin 26.9 pg (27.0-33.0); Mean Corpuscular Volume 82.9 fL (80.0-98.0); Mean Platelet Volume 11.4 fL (9.4-12.3); Monocytes Absolute Auto 0.6 X10*3/uL (0.1-1.2); Monocytes Percent Auto 8.4 % (2-11); Neutrophils Absolute Auto 5.2 x10*3/uL (2.0-8.3); Neutrophils Percent Auto 72.3 % (45-73); Platelet Count 228 X10*3/uL (160-400); Red Blood Count 4.27 X10*6/uL (4.20-5.50); Red Cell Distribution Width 12.7 % (11.0-16.0); White Blood Count 7.1 X10*3/uL (4.8-10.8)
[2021-11-07 06:13] LABS: Anion Gap 14 (12-20); Blood Urea Nitrogen 5 mg/dL (9-16); Calcium 9.1 mg/dL (8.4-10.2); Carbon Dioxide 25 mmol/L (22-29); Chloride 102 mmol/L (96-108); Creatinine Clr Calc Pharmacy 166.7; Estimated Glomerular Filt Rate > 60; Glucose Random 191 mg/dL (60-115); Sodium 137 mmol/L (135-145)
[2021-11-07] MEDS: Famotidine/PF 20 MG/2 ML VIAL IVPUSH (07:08)
[2021-11-07 07:30] VITALS: BP 146/85; PULSE 88; RESP 18; TEMP 36.6; O2SAT 99
--- NOTE | 2021-11-07 08:02 | HO.POSTANES ---
Post Anesthesia Evaluation Post Anesthesia Evaluation Vital Signs: Vital Signs Temp Pulse Resp BP Pulse Ox 11/07/21 07:30 97.9 F 88 18 146/85 H 99 11/07/21 03:36 98.2 F 83 18 129/77 98 11/07/21 00:00 98.4 F 98 18 136/70 99 Anesthesia: General Endotracheal-GETA Mental Status: Awake Pain Control: Satisfactory Nausea/Vomiting: None Hydration: Adequate Anesthesia-Related Issues: No Anes. Related Issues
--- NOTE | 2021-11-07 08:58 | MHC.CM.PN ---
EMR REVIEWED, PT ADMITTED S/P LAP SLEEVE GASTRECTOMY, CM MET W/PT WHO REPORTS SHE LIVES W/HER AND 2 KIDS, PT CURRENTLY WORKING, USES DIABETIC SUPPLIES AND NO THER DME, NO HOME SERVICES, PT VERIFIES PCP DEMETRA AGUILAR, RECEIVED [employer] VACCINE X2 AND PT HAS COMPLETED A HCP W/CM, PT GIVEN EDUCATYIONAL INFO, ORIGINAL AND 2 COPIES, COPY UPLOADED TO [facility] AND PLACED IN CHART. D/C PLAN: HOME TODAY NO SERVICES W/OUTPT FOLLOW-UP IN SURGEONS OFFICE, PT'S FOR TRANSPORT
== END 2021-11-07 09:15 | disposition home or self-care (01) | DRG 403 ==
LOC: HO.SSSA 12:55 → HO.S3 13:20
PROVIDERS: Physician Assistant; Physician Assistant Surgical; Admitting Provider Surgery; PCP Internal Medicine; Visit Provider Surgery
PROC: 0DB64Z3 Excision of Stomach, Percutaneous Endoscopic Approach, Vertical (ICD-10-PCS; CPT 43845; principal; 2021-11-06 10:10)
DX: E66.01 Morbid (severe) obesity due to excess calories (principal); E10.8 Type 1 diabetes mellitus with unspecified complications; K76.0 Fatty (change of) liver, not elsewhere classified; F32.A Depression, unspecified; F41.9 Anxiety disorder, unspecified; K21.9 Gastro-esophageal reflux disease without esophagitis; E78.5 Hyperlipidemia, unspecified; I10 Essential (primary) hypertension; R16.0 Hepatomegaly, not elsewhere classified; M54.9 Dorsalgia, unspecified; E03.9 Hypothyroidism, unspecified; D27.9 Benign neoplasm of unspecified ovary; Z68.41 Body mass index [BMI] 40.0-44.9, adult; G43.909 Migraine, unspecified, not intractable, without status migrainosus; Z20.822 Contact with and (suspected) exposure to COVID-19; Z79.4 Long term (current) use of insulin; Z79.899 Other long term (current) drug therapy
CPT/HCPCS: 36415; 80048; 80053; 80061; 82947; 83036; 83525; 84443; 85014; 85018; 85025; 85610; 85730; 86140; 86850; 86900; 86901; 87635; 88307; 88342; 99024; A4649; J0131; J0690; J1100; J1170; J2250; J2370; J2405; J2765; J3010

== ENCOUNTER → 2021-11-13 14:37 | Outpatient (BNVA) | payer OTHER, SELFPAY | PROVIDERS: PCP Internal Medicine; Referring Provider Internal Medicine; Visit Provider Surgery | DX: E66.01 Morbid (severe) obesity due to excess calories (principal); Z90.3 Acquired absence of stomach [part of]; Z68.39 Body mass index [BMI] 39.0-39.9, adult | CPT/HCPCS: 99212 ==

== ENCOUNTER → 2021-12-19 09:07 | Outpatient (BNVA) | payer OTHER, SELFPAY | PROVIDERS: PCP Internal Medicine; Referring Provider Internal Medicine; Visit Provider Physician Assistant | DX: E66.9 Obesity, unspecified (principal); Z90.3 Acquired absence of stomach [part of] | CPT/HCPCS: 99212 ==

== ENCOUNTER → 2022-01-23 08:18 | Outpatient (BNVA) | payer OTHER, SELFPAY | PROVIDERS: PCP Internal Medicine; Visit Provider Physician Assistant | DX: Z13.89 Encounter for screening for other disorder (principal) ==

== ENCOUNTER 2023-04-03 13:39 | Outpatient (AMB) | payer OTHER, SELFPAY ==
[2023-04-03 13:41] VITALS: BP 122/84; PULSE 79; O2SAT 97; BMI 38.6
--- NOTE | 2023-04-03 13:41 | A.OFFPC_ITS ---
Vital Signs 04/03/23 13:41 Height 5 ft 8 in Weight 254 lb BMI 38.6 BP 122/84 Blood Pressure Location Lt brachial Position Sitting Pulse 79 Pulse Source Pulse Oximeter Temp Source Skin Pulse Oximetry (%) 97 Oxygen Delivery Method Room Air Intake Visit Reasons: Kidney Issue/ Lump On Throat Intake Note: pt states cloudy urine [id number] and growth on throat [id number] Trust Evaluation Supervisor Required: No Allergies insulin glargine [Lantus U-100 Insulin] Allergy (Unknown, Verified 04/03/23 14:00) malaise/falls Medication List - Last Reconciled 04/03/23 by CHANDRAKANT Vazquez blood sugar diagnostic (FreeStyle Lite Strips) check BS 3-4x/day insulin asp prt-insulin aspart 100 unit/mL (70-30) (Novolog Mix 70-30FlexPen U- 100) 45 units in the AM; 30 units at night subcutaneously 30 days lancets (FreeStyle Lancets) As directed multivitamin 1 tab PO DAILY pen needle, diabetic (BD Cyndie 2nd Gen Pen Needle) As directed Tobacco use date assessed: 04/03/23 HPI Kidney Issue/ Lump On Throat HPI Details Patient is a 37-year-old female who presents today for an office visit with cloudy urine and lump on her neck. Patient of Dr. Neil, last seen by KAILEE 01/2022. Medical history significant for diabetes type 1 uncontrolled, morbid obesity, hyperlipidemia, hypertension, GERD, migraines among others. Patient reports that she is not always consistent with her insulin. She reports blood sugars at home ranging between 150 and 200s. Patient reports cloudy urine for the past 2 weeks, no burning with urination, no frequency, currently on menstruation. She also reports left-sided neck lump for the past 3 months now, she reports that this lump is uncomfortable at times. No difficulty swallowing. No shortness of breath or chest pain. Reports family history of different cancers. 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 [facility] Medical History Anxiety Chronic fatigue Depression Diabetes mellitus type 1, uncontrolled Elevated TSH GERD (gastroesophageal reflux disease) Hyperlipidemia Hypertension Migraines Morbid obesity Morbid obesity with BMI of 45.0-49.9, adult Subclinical hypothyroidism Yeast infection Surgical History Hx of tubal ligation Status post sleeve gastrectomy Family History Father Hx of diabetes mellitus Cardiovascular disease Mother S/P lumpectomy of breast Maternal Grandfather Family hx of colon cancer Sister Lymphoma Maternal Aunt Brain cancer Daughter No problems noted. 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 1. Little interest or pleasure in doing things: not at all 2. Feeling down, depressed, or hopeless: not at all 3. Trouble falling or staying asleep, or sleeping too much: not at all 4. Feeling tired or having little energy: not at all 5. Poor appetite or overeating: not at all 6. Feeling bad about yourself - or that you are a failure or have let yourself or your family down: not at all 7. Trouble concentrating on things, such as reading the newspaper or watching television: not at all 8. Moving or speaking so slowly that other people could have noticed. Or the opposite - being so fidgety or restless that you have been moving around a lot more than usual: not at all 9. Thoughts that you would be better off or of hurting yourself in some way: not at all Total score: 0 Depression Screening Interpretation: Negative [id number] - PHQ-9 Billing: Yes Source: Developed by Drs. Armando Hawkins, Micaela Sexton, Sergio Ward and colleagues, with an educational quinn from [employer]. Thrive Questionnaire Date Thrive assessed: 02/07/22 AUDIT C Alcohol Use Questionnaire (AUDIT-C) 1. How often do you have a drink containing alcohol?: Never 3. How often do you have six or more drinks on one occasion?: Never Total Score: 0 Score Reviewed/Action Taken: No BEBE-7 AMB Questionnaire BEBE-7 Date BEBE - 7 assessed: 04/03/23 Source: Developed by Drs. Armando Hawkins, Micaela Sexton, Sergio Ward and colleagues, with an educational quinn from [employer]. Review of Systems Const Denies body aches, Denies chills, Denies fever(s) and Denies headache(s) Eyes Denies change in vision ENT Denies dizziness, Denies otalgia, Denies headache(s), Denies nasal discharge, Denies sinus pain and Denies sore throat Card Denies chest pain, Denies edema, Denies lightheadedness and Denies dyspnea Resp Denies cough and Denies dyspnea GI Denies abdominal pain, Denies constipation, Denies diarrhea, Denies nausea and Denies vomiting Details: Cloudy urine Denies hematuria, Denies dysuria and Denies flank pain Musc Denies myalgias Skin/Breast Details: Neck lump Denies rash Neuro Denies dizziness and Denies headache(s) Physical exam (Primary Care) Vital Signs: Last Vital Signs Pulse 79 04/03/23 13:41 BP 122/84 04/03/23 13:41 Pulse Ox 97 04/03/23 13:41 Oxygen Delivery Method Room Air 04/03/23 13:41 BMI result Body Mass Index 38.6 Tobacco/Smoking Status: Tobacco use Status Tobacco use date assessed 04/03/23 04/03/23 13:42 Patient Tobacco Use Status Never used Tobacco 04/03/23 13:42 e-Cigarette/Vaping Use Never Used 04/03/23 13:42 PHQ-9: PHQ-9 Score PHQ-9: Total score 0 04/03/23 14:19 Depression Screening Interpretation: Negative Thrive Assessment: Date of Thrive Assessment Date Thrive assessed 02/07/22 04/03/23 13:42 Const General: cooperative and no acute distress Orientation/consciousness: patient oriented x3 HENMT Head: Yes normocephalic and Yes atraumatic Mouth: oropharynx normal and moist mucous membranes Throat: Yes posterior oropharynx normal Eyes General: appearance normal, both eyes and all related structures Pupils: Equal, round and reactive pupils present EOM: EOMs intact bilaterally Neck Neck: Yes normal visual inspection and Yes full ROM Thyroid: other (Mild anterior neck fullness noted) Neck images: 1. Left neck lump about 1 cm palpable noted, patient reports some discomfort, no pain, skin is intact Resp Effort & Inspection: normal respiratory effort and able to speak in complete sentences Auscultation: clear to auscultation bilaterally, no crackles, no rales, no rhonchi and no wheezes Cardio Rate: regular rate Rhythm: regular rhythm Heart sounds: S1 normal heart sound present and S2 normal heart sound present GI Palpation (GI): Soft to palpation, not firm, nontender, no guarding and not rigid Auscultation: normal bowel sounds General: No CVA tenderness Back/Spine/Pelvis Back: No CVA tenderness Skin General skin exam: no rashes or lesions noted Neuro General: patient oriented x3 Cranial nerves: Yes Equal, round and reactive pupils present Gait exam (Neuro): Normal gait present Extrem General: Yes full ROM and No edema Results AMB Hemoglobin A1c AMB Hemoglobin A1c 10.1 % Last Edit by KYA Belle on 04/03/23 14:02 AMB Urinalysis, Automated UA Leukoctes 0 Evelia/uL Last Edit by KYA Belle on 04/03/23 14:03 UA Nitrite Negative Last Edit by KYA Belle on 04/03/23 14:03 UA Urobilinogen 0.2 mg/dL Last Edit by KYA Belle on 04/03/23 14:03 UA Protein 15 mg/dL Last Edit by KYA Belle on 04/03/23 14:03 UA pH 5.5 Last Edit by KYA Belle on 04/03/23 14:03 UA Blood 3 Talat/uL Last Edit by KYA Belle on 04/03/23 14:03 UA Specific [place] 1.015 Last Edit by KYA Belle on 04/03/23 14:03 UA Ketone Positive Last Edit by KYA Belle on 04/03/23 14:03 UA Bilirubin 0 mg/dL Last Edit by KYA Belle on 04/03/23 14:03 UA Glucose 1000 mg/dL Last Edit by KYA Belle on 04/03/23 14:03 Results Reviewed Results Reviewed: Laboratory Last Values Hgb A1c (Clinic) 10.1 % (4.0-6.0) H 04/03/23 13:40 Urine pH (Auto) 5.5 04/03/23 14:01 Specific [place] (Auto) 1.015 04/03/23 14:01 Urine Protein (Auto) 15 mg/dL 04/03/23 14:01 Glucose (UA)(Auto) 1000 mg/dL 04/03/23 14:01 Urine Ketones (Auto) Positive 04/03/23 14:01 Urine Blood (Auto) 3 Talat/uL 04/03/23 14:01 Urine Nitrite (Auto) Negative 04/03/23 14:01 Urine Bilirubin (Auto) 0 mg/dL 04/03/23 14:01 Urine Urobilinogen (Auto) 0.2 mg/dL 04/03/23 14:01 Leukocyte Esterase (Auto) 0 Evelia/uL 04/03/23 14:01 Assessment and Plan Assessment & Plan (1) Cloudy urine: Code(s): R82.90 - Unspecified abnormal findings in urine Plan: Patient reports cloudy urine for the past 2 weeks, no other urinary symptoms Physical exam normal Urinalysis negative for UTI, will send urine for culture, urinalysis did show blood, sugar, ketones, protein. Will order blood work Patient was encouraged to increase fluid consumption Currently on menstruation (2) Neck nodule: Code(s): R22.1 - Localized swelling, mass and lump, neck Plan: Left neck lump about 1 cm palpable noted, patient reports some discomfort, no pain, skin is intact Will check thyroid blood work and thyroid ultrasound No recent sickness (3) Diabetes mellitus type 1, uncontrolled: Code(s): E10.65 - Type 1 diabetes mellitus with hyperglycemia Plan: A1c 10.1 today, goal less than 7 Reinforced compliance with insulin Low carbohydrate diet and weight loss Endocrinology referral for an evaluation and treatment Plan Follow-up with PCP in 3 months or sooner as needed Orders: Orders Comprehensive [place]. Panel Fast Today E10.65 - Type 1 diabetes mellitus with hyperglycemia Lipid Panel Today E10.65 - Type 1 diabetes mellitus with hyperglycemia TSH reflex Free T4 Today E10.65 - Type 1 diabetes mellitus with hyperglycemia Microalbumin, Random (w Creat) Today E10.65 - Type 1 diabetes mellitus with hyperglycemia Complete Blood Count Auto Diff Today E10.65 - Type 1 diabetes mellitus with hyperglycemia US thyroid Today R22.1 - Localized swelling, mass and lump, neck Urine Culture Today R82.90 - Unspecified abnormal findings in urine AMB Hemoglobin A1c Today E10.65 - Type 1 diabetes mellitus with hyperglycemia AMB Urinalysis Automated Today Z13.9 - Encounter for screening, unspecified Referrals Endocrinology Referral E10.65 - Type 1 diabetes mellitus with hyperglycemia Medications: Refilled insulin asp prt-insulin aspart 100 unit/mL (70-30) (Novolog Mix 70-30FlexPen U- 100) 45 units in the AM; 30 units at night subcutaneously 15 mL 3RF 30 days E10.65 - Type 1 diabetes mellitus with hyperglycemia Coding Level of Care Code Est Pt Level 4 (76655) Diagnoses Cloudy urine R82.90 Neck nodule R22.1 Diabetes mellitus type 1, uncontrolled E10
== END 2023-04-03 14:38 | disposition home or self-care (01) ==
PROVIDERS: PCP Internal Medicine; Visit Provider Nurse Practitioner Family
DX: R82.90 Unspecified abnormal findings in urine (principal); R22.1 Localized swelling, mass and lump, neck; E10.65 Type 1 diabetes mellitus with hyperglycemia
CPT/HCPCS: 81003; 83036; 99214

== ENCOUNTER 2023-04-03 14:19 | Outpatient (REF) | payer OTHER, SELFPAY | END 2023-04-03 14:20 | disposition home or self-care (01) | LOC: HO.LAB 14:19 | PROVIDERS: Visit Provider Nurse Practitioner Family | DX: R82.90 Unspecified abnormal findings in urine (principal); E10.65 Type 1 diabetes mellitus with hyperglycemia | CPT/HCPCS: 87086; 87147 ==

== ENCOUNTER 2023-04-08 14:49 | Outpatient (REF) | payer OTHER, SELFPAY ==
--- NOTE | ~2023-04-08 | US_ITS ---
EXAMINATION: US THYROID CLINICAL INFORMATION: Left neck lump. COMPARISON: None available. TECHNIQUE: Linear transducer grayscale and color Doppler examination with attention to the region of the thyroid. FINDINGS: SIZE: Measurements of the thyroid lobes and nodules are given in sagittal, anteroposterior and transverse dimensions respectively. Right Thyroid Lobe: 4.3 x 1.5 x 1.7 cm, volume 5.7 mL. Parenchyma: The gland echotexture is homogeneous. Thyroid vascularity is normal. Left Thyroid Lobe: 4.5 x 1.6 x 1.4 cm, volume 5.3 mL. Parenchyma: The gland echotexture is homogeneous. Thyroid vascularity is normal. Isthmus: 0.3 cm in maximum AP dimension. Estimated total number of nodules greater than or equal to 1 cm: 1. Fare Enforcement Officer nodules are described as follows: 1. Location: Left isthmus. Size: 1.0 x 0.8 x 1.0 cm, volume 0.4 mL. Nodule characteristics: Composition: Solid (2). Echogenicity: Hypoechoic (2). Shape: Not taller than wide (0). Margins: Smooth (0). Echogenic Foci: None (0). ACR TI-RADS total points: 4 ACR TI-RADS category: 4 Cluster of cystic areas at the upper aspect of the left thyroid lobe. NODES: No lymphadenopathy is seen in the tissue surrounding the thyroid gland. ADDITIONAL FINDINGS: There is a 1.2 x 0.5 x 0.5 cm hypoechoic soft tissue mass inferior to the right thyroid lobe may represent parathyroid or atypical lymph node. US/US thyroid IMPRESSION: 1. There is a 1.0 cm left isthmus TR 3 nodule. Recommend follow-up ultrasound in 12 months. 2. There is a 1.2 x 0.5 x 0.5 cm hypoechoic soft tissue mass inferior to the right thyroid lobe may represent parathyroid or atypical lymph node. Correlation with clinical exam recommended to determine further management. Recommend follow up ultrasound in 3-6 months. 3.Cluster of cystic areas at the upper aspect of the left thyroid lobe. Palpable lump left neck. ACR TI-RADS RECOMMENDATION REFERENCE: Ultrasound-guided fine-needle aspiration, followup ultrasound, no further follow up. * TR1 (0 point) and TR2 (2 points): No FNA or follow up. * TR3 (3 points): FNA if more than or equal to 2.5 cm in maximum dimension, followup ultrasound in 1, 3 and 5 years if 1.5 to 2.4 cm in maximum dimension. * TR4 (4-6 points): FNA if more than or equal to 1.5 cm in maximum dimension, followup ultrasound in 1, 2, 3 and 5 years if 1 to 1.4 cm in maximum dimension. * TR5 (more than or equal to 7 points): FNA if more than or equal to 1 cm in maximum dimension, followup ultrasound every year for 5 years if 0.5 to 0.9 cm in maximum dimension. * TR3, TR4 or TR5 nodules that are below the size threshold for followup receive no follow up.
== END 2023-04-08 14:50 | disposition home or self-care (01) ==
LOC: HO.US 14:49
PROVIDERS: PCP Internal Medicine; Visit Provider Nurse Practitioner Family
DX: R22.1 Localized swelling, mass and lump, neck (principal)
CPT/HCPCS: 76536

== ENCOUNTER 2023-04-11 08:02 | Outpatient (REF) | payer OTHER, SELFPAY ==
[2023-04-11 08:17] LABS: MANUAL DIFF FLAG NO
[2023-04-11 08:50] LABS: Basophils Absolute Auto 0.1 X10*3/uL (0.0-0.2); Basophils Percent Auto 1.1 % (0-2); Eosinophils Absolute Auto 0.2 X10*3/uL (0.0-0.4); Eosinophils Percent Auto 3.3 % (0-4); Hemoglobin 10.6 g/dl (12.0-16.0); Imm Gran Abs Auto 0.01 X10*3/uL (0.00-0.03); Imm Gran Pct Auto 0.2 % (0.0-0.4); Lymphocytes Absolute Auto 1.6 X10*3/uL (1.2-4.9); Lymphocytes Percent Auto 35.1 % (20-40); Mean Corpuscular HGB Conc 30.3 g/dl (31.0-35.0); Mean Corpuscular Hemoglobin 24.7 pg (27.0-33.0); Mean Corpuscular Volume 81.6 fL (80.0-98.0); Mean Platelet Volume 11.2 fL (9.4-12.3); Monocytes Absolute Auto 0.4 X10*3/uL (0.1-1.2); Monocytes Percent Auto 7.8 % (2-11); Neutrophils Absolute Auto 2.4 x10*3/uL (2.0-8.3); Neutrophils Percent Auto 52.5 % (45-73); Platelet Count 247 X10*3/uL (160-400); Red Blood Count 4.29 X10*6/uL (4.20-5.50); Red Cell Distribution Width 13.1 % (11.0-16.0); White Blood Count 4.5 X10*3/uL (4.8-10.8)
[2023-04-11 09:33] LABS: Alanine Aminotransferase 12 U/L (0-31); Albumin Level 3.6 g/dL (3.5-5.0); Alkaline Phosphatase 91 U/L (39-117); Anion Gap 12 (12-20); Aspartate Amino Transferase 14 U/L (5-31); Bilirubin Total 0.4 mg/dL (0.0-1.0); Blood Urea Nitrogen 10 mg/dL (9-16); Calcium 9.5 mg/dL (8.4-10.2); Carbon Dioxide 24 mmol/L (22-29); Chloride 105 mmol/L (96-108); Cholesterol 216 mg/dL; Estimated Glomerular Filt Rate > 60; Glucose Fasting 198 mg/dL (60-99); HDL Cholesterol 73 mg/dL; LDL Cholesterol Calculated 132 mg/dl; Sodium 137 mmol/L (135-145); Total Protein 6.6 g/dL (6.5-8.0); Triglycerides 57 mg/dL
[2023-04-11 09:37] LABS: Creatinine Urine 90.54 mg/dL; Microalbum/Creatinine Ratio Ur 14.3 ug/mg cr
[2023-04-11 09:55] LABS: TSH reflex Free T4 3.09 uIU/mL (0.32-4.0)
== END 2023-04-11 08:03 | disposition home or self-care (01) ==
LOC: HO.LAB 08:02
PROVIDERS: PCP Internal Medicine; Visit Provider Nurse Practitioner Family
DX: E10.65 Type 1 diabetes mellitus with hyperglycemia (principal)
CPT/HCPCS: 36415; 80053; 80061; 82043; 84443; 85025

== ENCOUNTER 2023-04-16 08:33 | Outpatient (REF) | payer OTHER, MEDICAID, SELFPAY ==
[2023-04-16 11:27] LABS: Iron 33 mcg/dL (30-160); Percent Iron Saturation 13 % (15-50); Total Iron Binding Capacity 260 mcg/dL (228-428); Unsaturated Iron Binding 227 ug/dL
== END 2023-04-16 08:34 | disposition home or self-care (01) ==
LOC: HO.LAB 08:33
PROVIDERS: PCP Internal Medicine; Visit Provider Nurse Practitioner Family
DX: D64.9 Anemia, unspecified (principal)
CPT/HCPCS: 36415; 83540

== ENCOUNTER 2023-05-01 15:06 | Outpatient (AMB) | payer OTHER, SELFPAY ==
--- NOTE | 2023-05-01 15:10 | A.OFFVIS_ITS ---
Intake Vital Signs 05/01/23 15:19 Height 5 ft 8 in Weight 251 lb 2 oz BMI 38.2 BP 138/72 Blood Pressure Location Lt brachial Position Sitting Pulse 79 Intake Visit Reasons: Palpable lump left neck Intake Note: Patient is seen in office for evaluation and treatment of a lump on the neck. Patient c/o: onset for months, has increase in size, has 2 lumps on the left side, denies discharge, redness, discoloration, pain, admit to discomfort when swallowing and causes pain in the throat, had an ultrasound done Frit Coater Required: Yes Frit Coater Language: Home Theatre Technician Name: Stacy BOLAND Information Interpreted: non-clinical & clinical Allergies insulin glargine [Lantus U-100 Insulin] Allergy (Unknown, Verified 05/01/23 15:18) malaise/falls Medication List - Last Reconciled 05/05/23 by Nabil Townsend MD ascorbic acid (vitamin C) 250 mg PO DAILY blood sugar diagnostic (FreeStyle Lite Strips) check BS 3-4x/day cefuroxime axetil 250 mg PO Q12H ferrous sulfate 324 mg PO DAILY insulin asp prt-insulin aspart 100 unit/mL (70-30) (Novolog Mix 70-30FlexPen U- 100) 45 units in the AM; 30 units at night subcutaneously 30 days lancets (FreeStyle Lancets) As directed multivitamin 1 tab PO DAILY pen needle, diabetic (BD Cyndie 2nd Gen Pen Needle) As directed pravastatin 10 mg PO BEDTIME HPI HPI Comments History of Present Illness Details 37-year-old female patient presenting for evaluation of a lump of the left neck. She reports pain in the left neck which developed several months ago and has increased in severity. She reports pain with opening her mouth and closing her jaw. She denies difficulty with swallowing. She feels an area of swelling in the left lateral neck and subsequently underwent evaluation with ultrasound of the left neck. This revealed: A 1 cm left isthmus nodule for which 12 month follow-up ultrasound is recommended. There is a 1.2 x 0.5 x 0.5 cm hypoechoic soft tissue mass inferior to the right thyroid lobe which may represent parathyroid or atypical lymph node. Correlation with clinical exam is recommended to determine further management. Recommend follow-up ultrasound in 3 6 months. A cluster of cystic areas in the upper aspect of the left thyroid lobe was noted. This corresponds to the palpable left neck lump. The patient denies any redness, discharge from the skin or mouth. She denies a previous history of lymph node enlargement or thyroid disease. [facility] Medical History Anxiety Chronic fatigue Depression Diabetes mellitus type 1, uncontrolled Elevated TSH GERD (gastroesophageal reflux disease) Hyperlipidemia Hypertension Migraines Morbid obesity Morbid obesity with BMI of 45.0-49.9, adult Subclinical hypothyroidism Yeast infection Surgical History Hx of tubal ligation Status post sleeve gastrectomy Family History Father Hx of diabetes mellitus Cardiovascular disease Mother S/P lumpectomy of breast Maternal Grandfather Family hx of colon cancer Sister Lymphoma Maternal Aunt Brain cancer Daughter No problems noted. 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) Alcohol intake: never Patient Tobacco Use Status: Never used Tobacco e-Cigarette/Vaping Use: Never Used service: No Current occupational status: employed Gender identity: Female Cognitive needs: No Hearing needs: No Vision needs: Yes Review of Systems Const All systems reviewed & are unremarkable except as noted in HPI and below Physical Exam Vital Signs: Last Vital Signs Pulse 79 05/01/23 15:19 BP 138/72 05/01/23 15:19 BMI result Body Mass Index 38.2 Const General: healthy appearing and no acute distress Nutritional Appearance: well nourished Orientation/consciousness: patient oriented x3 Limitations: no limitations HEENT Head: Yes normocephalic and Yes atraumatic Ears: hearing grossly normal bilaterally Neck Other: Patient points to an area of the angle the mandible extending down along the anterior surface of the sternocleidomastoid muscle as area of palpable abnormality in tenderness. No definite lymph node enlargement is identified. I am unable to appreciate a thyroid nodule with swallowing. No intraoral lesions are identified. 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 On examination I am unable to clearly feel the palpable abnormali ty. I recommended she be evaluated by an ENT surgeon and have referred her to [facility], [facility]. Orders: Referrals Ear/Nose/Throat Referral E04.1 - Nontoxic single thyroid nodule, E21.5 - Disorder of parathyroid gland, unspecified, R22.1 - Localized swelling, mass and lump, neck Coding Level of Care Code New Pt Level 4 (94548) Diagnoses Neck nodule R22.1 Thyroid cyst E04.1 Parathyroid abnormality E21.5
[2023-05-01 15:19] VITALS: BP 138/72; PULSE 79; BMI 38.2
== END 2023-05-01 15:50 | disposition home or self-care (01) ==
PROVIDERS: PCP Internal Medicine; Visit Provider Surgery
DX: E04.1 Nontoxic single thyroid nodule (principal); E21.5 Disorder of parathyroid gland, unspecified; R93.89 Abnormal findings on diagnostic imaging of other specified body structures
CPT/HCPCS: 99204

== ENCOUNTER → 2023-05-01 15:06 | Outpatient (BNVA) | payer OTHER, SELFPAY | PROVIDERS: PCP Internal Medicine; Visit Provider Surgery ==

== ENCOUNTER 2023-07-23 12:44 | Outpatient (REF) | payer OTHER, MEDICAID, SELFPAY ==
--- NOTE | ~2023-07-23 | US_ITS ---
EXAMINATION: US THYROID CLINICAL INFORMATION: Localized swelling, mass and lump, left neck. COMPARISON: Ultrasound thyroid 04/08/2023. TECHNIQUE: Linear transducer camargo-scale and color Doppler examination with attention to the region of the thyroid. FINDINGS: SIZE: Measurements of the thyroid lobes and nodules are given in sagittal, anteroposterior and transverse dimensions respectively. Right Thyroid Lobe: 5.1 x 1.4 x 2.2 cm, volume 8.4 mL. Previously 4.3 x 1.5 x 1.7 cm, volume 5.7 mL. Parenchyma: The gland echotexture is homogeneous. Thyroid vascularity is normal. Left Thyroid Lobe: 4.9 x 1.4 x 1.6 cm, volume 5.8 mL. Previously 4.5 x 1.6 x 1.4 cm, volume 5.3 mL. Parenchyma: The gland echotexture is homogeneous. Thyroid vascularity is normal. Isthmus: 0.3 cm in maximum AP dimension. Previously 0.3 cm. Estimated total number of nodules greater than or equal to 1 cm: 1. Telecasting Technician nodules are described as follows: 1. Location: Left mid. Size: 0.6 x 0.3 x 0.4 cm, volume 0.05 mL. Previously: New since the previous study. Nodule characteristics: Composition: Solid (2). Echogenicity: Hypoechoic (2). Shape: Not taller than wide (0). Margins: Ill-defined (0). Echogenic Foci: Macrocalcifications (1). ACR TI-RADS total points: 5 ACR TI-RADS category: 4 2. Location: Left isthmus. Size: 1.2 x 0.9 x 1.1 cm, volume 0.6 mL. Previously: 1.0 x 0.8 x 1.0 cm, volume 0.4 mL. Nodule characteristics: Composition: Solid/almost completely solid (2). Echogenicity: Isoechoic (1). Shape: Not taller than wide (0). Margins: Smooth (0). Echogenic Foci: None (0). ACR TI-RADS total points: 3 Previous: 3 ACR TI-RADS category: 3 Previous: 3 Significant change in size (>/= 20% in 2 dimensions and minimal increase of 2 mm or 50% or greater increase in volume): No Change in features: No Change in ACR TI-RADS risk category: No NODES: No lymphadenopathy is seen in the tissue surrounding the thyroid gland. ADDITIONAL FINDINGS: Echogenic focus noted on the right inferiorly potentially representing a parathyroid gland measuring 1.2 x 0.5 x 0.9 cm. US/US thyroid IMPRESSION: 1. Nodule in the midportion left thyroid lobe measures up to 0.6 cm with a TI-RADS category of 4. Nodule does not require follow-up. 2. Nodule in the left portion of the isthmus demonstrate slight increase maximum dimension now measuring 1.2 cm with a stable TI-RADS Category 3. Nodule does not require follow-up. 3. Bilateral thyroid lobes demonstrate homogeneous echotexture is normal vascularity. 4. No lymphadenopathy noted. 5. Echogenic focus noted on the right inferiorly potentially representing a parathyroid gland measuring 1.2 x 0.5 x 0.9 cm. ACR TI-RADS RECOMMENDATION REFERENCE: Ultrasound-guided fine-needle aspiration, follow up ultrasound, no further followup. * TR3 (3 points): FNA if more than or equal to 2.5 cm in maximum dimension, follow up ultrasound in 1, 3 and 5 years if 1.5 to 2.4 cm in maximum dimension. * TR4 (4-6 points): FNA if more than or equal to 1.5 cm in maximum dimension, follow up ultrasound in 1, 2, 3 and 5 years if 1 to 1.4 cm in maximum dimension. * TR3 or TR4 nodules that are below the size threshold for follow up receive no followup.
== END 2023-07-23 12:45 | disposition home or self-care (01) ==
LOC: HO.US 12:44
PROVIDERS: Visit Provider Nurse Practitioner Family
DX: R22.1 Localized swelling, mass and lump, neck (principal)
CPT/HCPCS: 76536

== ENCOUNTER 2023-08-07 09:00 | Outpatient (AMB) | payer OTHER, SELFPAY ==
--- NOTE | 2023-08-07 09:02 | MHC.PC.OV ---
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 Accompanied by: Self / Same As Patient Allergies insulin glargine [Lantus U-100 Insulin] Allergy (Unknown, Verified 08/07/23 09:27) malaise/falls Medication List - Last Reconciled 08/07/23 by Xochitl Alfaro MD ascorbic acid (vitamin C) 250 mg PO DAILY blood sugar diagnostic (FreeStyle Lite Strips) check BS 3-4x/day ferrous sulfate 324 mg PO DAILY insulin glargine (Lantus Solostar U-100 Insulin) 40 units subcut QPM insulin lispro (Humalog KwikPen (U-100) Insulin) 20 units subcut BID lancets (FreeStyle Lancets) As directed multivitamin 1 tab PO DAILY pen needle, diabetic (BD Cyndie 2nd Gen Pen Needle) As directed pravastatin 10 mg PO BEDTIME Tobacco use date assessed: 04/03/23 Dental Screening Dental Screen Date: 08/07/23 Did you have a dental visit in the last 12 months?: No Did you have a dental problem in the last 6 months where you did not have access to dental care?: No Was dental information given to patient?: Patient has dentist HPI HPI Comments History of Present Illness Details This is a 38-year-old female with diabetes mellitus type 1 that comes for her physical exam. A1c not on goal and she follows well with [place] [facility]. Not compliant with Lantus and I replace it with Tresiba. Use Humalog twice a day sterile 4 times a day as instructed. Pap smear was 2020 and was normal with HPV negative. LDL not on goal and I will increase pravastatin. Diabetic eye exam was over a year ago. She is obese and was advised to go back to weight management. 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 Will be referred to surgery for evaluation. Complains of dysphagia to solids and liquids. [facility] Medical History (Updated 08/07/23 @ 11:09 by Xochitl Alfaro MD) Anxiety Depression Migraines GERD (gastroesophageal reflux disease) Hyperlipidemia Hypertension Morbid obesity Morbid obesity with BMI of 45.0-49.9, adult Yeast infection Chronic fatigue Elevated TSH Subclinical hypothyroidism Diabetes mellitus type 1, uncontrolled Surgical History Status post sleeve gastrectomy Hx of tubal ligation Family History Father Hx of diabetes mellitus Cardiovascular disease Mother S/P lumpectomy of breast Maternal Grandfather Family hx of colon cancer Sister Lymphoma Maternal Aunt Brain cancer Daughter No problems noted. 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 caregiver to a significant other at home: Yes (2 minor children, 1 special needs) Do you presently have visiting nurse or other home services: Yes ([employer] for 12 year old son) Alcohol intake: never Patient Tobacco Use Status: Never used Tobacco e-Cigarette/Vaping Use: Never Used Second Hand Smoke Exposure: No service: No Current occupational status: employed Current occupational exposures/hazards: No Gender identity: Female Cognitive needs: No Hearing needs: No Vision needs: Yes Questionnaire Thrive Questionnaire Date Thrive assessed: 02/07/22 BEBE-7 AMB Questionnaire BEBE-7 Date BEBE - 7 assessed: 04/03/23 Source: Developed by Drs. Armando Hawkins, Micaela Sexton, Sergio Ward and colleagues, with an educational quinn from [employer]. Review of Systems Const All systems reviewed & are unremarkable except as noted in HPI and below Eyes Reports no additional complaints, Denies change in vision and Denies other visual disturbances Card Denies chest pain at rest, Denies chest pain with activity, Denies edema, Denies irregular heart rhythm, Denies claudication, Denies dyspnea, Denies dyspnea on exertion, Denies orthopnea, Denies paroxysmal nocturnal dyspnea and Denies slow heart rate Resp Denies cough, Denies dyspnea and Denies dyspnea on exertion GI Denies abdominal pain, Denies change in bowel habits, Denies excessive flatus, Denies nausea and Denies vomiting Denies urinary incontinence, Denies urinary hesitancy and Denies urinary urgency Musc Denies abnormal gait, Denies atrophy, Denies deformity and Denies limited range of motion Skin/Breast Denies bleeding lesions, Denies changing lesions and Denies rash Neuro Denies abnormal gait and Denies lack of coordination Physical exam (Primary Care) Vital Signs: Last Vital Signs BP 120/74 08/07/23 09:03 BMI result Body Mass Index 39.1 Tobacco/Smoking Status: Tobacco use Status Tobacco use date assessed 04/03/23 08/07/23 09:09 Patient Tobacco Use Status Never used Tobacco 08/07/23 09:09 e-Cigarette/Vaping Use Never Used 08/07/23 09:09 Thrive Assessment: Date of Thrive Assessment Date Thrive assessed 02/07/22 08/07/23 09:09 Const Orientation/consciousness: patient oriented x3 HENMT Head: Yes normal to inspection, Yes normocephalic and Yes atraumatic Ears: external ears normal Eyes General: appearance normal, both eyes and all related structures Eyelids: Yes eyelids normal Conjunctivae: conjunctivae normal Neck Neck: Yes normal visual inspection and Yes supple Resp Effort & Inspection: normal respiratory effort Auscultation: clear to auscultation bilaterally Cardio Jugular venous distension: no JVD Rate: regular rate Rhythm: regular rhythm Heart sounds: S1 normal heart sound present and S2 normal heart sound present GI Inspection: Yes normal to inspection Palpation (GI): Soft to palpation and nontender Auscultation: normal bowel sounds Skin General skin exam: no rashes or lesions noted Neuro General: patient oriented x3 and no focal motor deficits Extrem General: Yes full ROM Psych Appearance: grossly normal Office Procedures Flu Questionnaire Does the patient have a severe egg allergy?: No Results AMB Hemoglobin A1c AMB Hemoglobin A1c 10.5 % Last Edit by KYA Traylor on 08/07/23 09:20 Immunizations flu vacc [id number] 6mos up(PF) 60 mcg(15 mcgx4)/0.5 mL IM syringe Performing Provider: Xochitl Alfaro MD [facility] Documented (not given) by: KYA Traylor on 08/07/23 09:15 Reason Not Given: Patient Refused Results Reviewed Results Reviewed: Laboratory Last Values Hgb A1c (Clinic) 10.5 % (4.0-6.0) H 08/07/23 09:14 Assessment and Plan Assessment & Plan (1) Physical exam: Code(s): Z00.00 - Encounter for general adult medical examination without abnormal findings Plan: Repeat in a year. (2) Parathyroid abnormality: Code(s): E21.5 - Disorder of parathyroid gland, unspecified Plan: Referred to surgery. (3) Diabetes mellitus type 1, uncontrolled: Code(s): E10.65 - Type 1 diabetes mellitus with hyperglycemia Qualifiers: Glycemic state: with hyperglycemia Qualified Code(s): E10.65 - Type 1 diabetes mellitus with hyperglycemia Plan: Follow-up with endocrinology. Start Tresiba instead of Lantus. Continue short-acting insulin. A1c goal is equal or less than 7%. Orders: Orders Vitamin B12 and Folate Today E53.8 - Deficiency of other specified B group vitamins Vitamin A Today E50.9 - Vitamin A deficiency, unspecified Comprehensive [place]. Panel Fast Today E10.65 - Type 1 diabetes mellitus with hyperglycemia Microalbumin, Random (w Creat) Today E10.65 - Type 1 diabetes mellitus with hyperglycemia, E11.9 - Type 2 diabetes mellitus without complications Insulin Auto Antibody Today E10.65 - Type 1 diabetes mellitus with hyperglycemia Complete Blood Count Auto Diff Today D64.9 - Anemia, unspecified AMB Hemoglobin A1c Today E10.65 - Type 1 diabetes mellitus with hyperglycemia FL barium swallow modified Today R13.10 - Dysphagia, unspecified Vitamin D 25-OH Total Today E55.9 - Vitamin D deficiency, unspecified Lipid Panel Today E10.65 - Type 1 diabetes mellitus with hyperglycemia, E78.5 - Hyperlipidemia, unspecified Glutamic acid decarboxylase Ab Today E10.65 - Type 1 diabetes mellitus with hyperglycemia IRON PROFILE Today D64.9 - Anemia, unspecified Thyroid Stimulating Hormone Today E04.1 - Nontoxic single thyroid nodule Influenza [id number] Immunization Today Z23 - Encounter for immunization Referrals Ophthalmology Referral E10.65 - Type 1 diabetes mellitus with hyperglycemia General Surgery Referral E21.5 - Disorder of parathyroid gland, unspecified Medications: New insulin degludec (Tresiba FlexTouch U-100 insulin) 20 units (0.2 mL) subcut BEDTIME 90 days 18 mL 1RF pravastatin 20 mg PO BEDTIME 90 days 90 tabs 1RF E78.5 - Hyperlipidemia, unspecified Discontinued pravastatin Discontinued Reason: Patient Completed Course 10 mg PO BEDTIME 30 tabs 2RF E78.5 - Hyperlipidemia, unspecified Coding Level of Care Code Est Pt Prev Care [id number]) Diagnoses Physical exam Z00.00 Parathyroid abnormality E21.5 Uncontrolled type 1 diabetes mellitus with hyperglycemia E10.65 Glycemic state: with hyperglycemia Time Spent (min) 35
[2023-08-07 09:03] VITALS: BP 120/74; BMI 39.1
== END 2023-08-07 09:47 | disposition home or self-care (01) ==
PROVIDERS: PCP Internal Medicine; Visit Provider Internal Medicine
DX: Z00.00 Encounter for general adult medical examination without abnormal findings (principal); E21.5 Disorder of parathyroid gland, unspecified; E10.65 Type 1 diabetes mellitus with hyperglycemia
CPT/HCPCS: 83036; 99395

== ENCOUNTER → 2024-05-18 14:07 | Outpatient (RCR) | payer OTHER, SELFPAY ==
[2020-07-17 09:11] VITALS: BP 130/61; PULSE 86; RESP 18; TEMP 36.5; O2SAT 94
[2020-07-17 09:14] VITALS: BMI 47.2
[2020-07-17 11:51] LABS: MANUAL DIFF FLAG NO
[2020-07-17 12:02] LABS: Basophils Percent Auto 0.6 % (0-2); Eosinophils Absolute Auto 0.2 X10*3/uL (0.0-0.4); Eosinophils Percent Auto 3.2 % (0-4); Hematocrit 39.9 % (37-47); Hemoglobin 13.1 g/dl (12.0-16.0); Imm Gran Abs Auto 0.02 X10*3/uL (0.00-0.03); Imm Gran Pct Auto 0.4 % (0.0-0.4); Lymphocytes Absolute Auto 1.4 X10*3/uL (1.2-4.9); Lymphocytes Percent Auto 25.2 % (20-40); Mean Corpuscular HGB Conc 32.8 g/dl (31.0-35.0); Mean Corpuscular Hemoglobin 26.8 pg (27.0-33.0); Mean Corpuscular Volume 81.6 fL (80-98); Mean Platelet Volume 11.4 fL (9.4-12.3); Monocytes Absolute Auto 0.4 X10*3/uL (0.1-1.2); Monocytes Percent Auto 7.5 % (2-11); Neutrophils Absolute Auto 3.4 X10*3/uL (2.0-8.3); Neutrophils Percent Auto 63.1 % (45-73); Platelet Count 258 X10*3/uL (160-400); Red Blood Count 4.89 X10*6/uL (4.20-5.50); White Blood Count 5.4 X10*3/uL (4.8-10.8)
[2020-07-17 12:26] LABS: Iron 50 mcg/dL (30-160); Percent Iron Saturation 17 % (15-50); Total Iron Binding Capacity 295 mcg/dL (228-428); Unsaturated Iron Binding 245 ug/dL
--- NOTE | 2020-07-17 12:34 | MHC.HEMONC ---
Intial Consult, given patient fam hx of CA myriad genetic testing completed and sent out. follow up in 2 months.
[2020-07-17 13:52] LABS: Folate 12.4 ng/mL (> or = 4.0); Vitamin B12 462 pg/mL (200-900)
--- NOTE | 2020-07-17 14:02 | P.CNHO_ITS ---
Subjective - Subjective Chief complaint: Family history of cancer Consult date: 07/17/20 Primary Care Provider: Xochitl Alfaro MD HPI - Consult Narrative Reason for consult: Referred for evaluation of fatigue Narrative: Luba Agarwal is a 34 year old female who has been referred by her PCP for chronic fatigue. She has a history of longstanding diabetes mellitus and recent diagnosis of hypothyroidism. However, patient states that she is not concerned about her fatigue which is quite chronic and not changed significantly in the last few months. She is more concerned about her family history of breast and colon cancer. Her mother was treated for breast cancer around the age of 55 and her maternal grandfather had colon cancer. She is not sure of his age. One of her sisters has lymphoma. She does not recall any other cancers in her extended family. She herself has never had a mammogram or colonoscopy. She has had no symptoms of palpable breast lumps, change in bowel habits, abdominal pain, hematochezia melena. She has had some headache and blurry vision recently, evaluated by systems development consultant. She was told of changes of diabetes in her blood vessels and they are working on her new prescription. She also reports skin changes on her lower extremities. Review of Systems - Constitutional Reports as per HPI, Reports no additional constitutional complaints, Denies anorexia, Denies lack of energy, Denies night sweats, Denies poor appetite - Cardiovascular Denies chest pain, Denies fast heart rate - Respiratory Denies cough, Denies dyspnea - Gastrointestinal Reports no additional gastrointestinal complaints - Integumentary/Breasts Skin/Breast: Denies no additional skin complaints, Denies unusual bruising Oncology Screenings - ECOG Performance Status ECOG Performance Status: [facility] Medical History: Medical History (Last Updated 07/17/20 @ 09:10 by Shelly Corrigan RN) Body mass index (BMI) greater than 30 Chronic fatigue Diabetes mellitus type 1, uncontrolled Elevated TSH Subclinical hypothyroidism Yeast infection Family History: Family History (Last Updated 07/17/20 @ 09:04 by Shelly Corrigan RN) Father Hx of diabetes mellitus Cardiovascular disease Mother Hx of breast cancer Maternal Grandfather Family hx of colon cancer Sister Lymphoma Surgical History: Surgical History (Last Updated 06/19/20 @ 14:27 by Holli Olson CMA) Hx of tubal ligation Smoking status: Never smoker Home Medications and Allergies Home Medications Medication Instructions Recorded Confirmed Type Humulin 70/30 U-100 KwikPen 65 units SUBCUT QAM 07/17/20 07/17/20 History atorvastatin 20 mg PO DAILY 07/17/20 07/17/20 History insulin asp prt-insulin aspart 20 unit SUBCUT DAILY 07/17/20 History [Novolog Mix 70-30FlexPen U-100] valsartan 40 mg PO DAILY 07/17/20 07/17/20 History Allergies Allergy/AdvReac Type Severity Reaction Status Date / Time insulin glargine Allergy Unknown malaise/fal Verified 07/17/20 09:40 [Lantus U-100 Insulin] ls Physical Exam Vital signs: Vital Signs Temp 97.7 F 07/17/20 09:11 Pulse 86 07/17/20 09:11 Resp 18 07/17/20 09:11 BP 130/61 07/17/20 09:11 Pulse Ox 94 07/17/20 09:11 Intake & Output 07/16/20 07/17/20 07/17/20 18:59 06:59 18:59 Other: Weight 141.1 kg Weight 141.1 kg - Constitutional Present: obese. Absent: no acute distress - Routine HEENT Exam Head: Present: normal inspection Eye: Present: EOMI - Routine Neck Exam Absent: lymphadenopathy - Routine Respiratory Exam Absent: rhonchi, wheezes - Routine Cardiovascular Exam Cardiovascular: Present: RRR, S1, S2 Hem/Onc Consult Result - Labs CBC & Chem 7: 07/17/20 11:25 Labs: Short CBC 07/17/20 Range/Units 11:25 WBC 5.4 (4.8-10.8) X10*3/uL Hgb 13.1 (12.0-16.0) g/dl Hct 39.9 (37-47) % Plt Count 258 (160-400) X10*3/uL Abnormal Labs 07/17/20 11:25 MCH 26.8 L Laboratory Results - last 24 hr 07/17/20 07/17/20 07/17/20 11:25 11:25 11:25 WBC 5.4 RBC 4.89 Hgb 13.1 Hct 39.9 MCV 81.6 MCH 26.8 L MCHC 32.8 RDW 13.0 Plt Count 258 MPV 11.4 Immature Gran % (Auto) 0.4 Neut % (Auto) 63.1 Lymph % (Auto) 25.2 [place] % (Auto) 7.5 Eos % (Auto) 3.2 Baso % (Auto) 0.6 Lymph # (Auto) 1.4 [place] # (Auto) 0.4 Eos # (Auto) 0.2 Baso # (Auto) 0.0 Abs Immat Gran (auto) 0.02 Absolute Neuts (auto) 3.4 Absolute Nucleated RBC 0.000 Nucleated RBC % (auto) 0.0 Iron 50 TIBC 295 % Saturation 17 Unsat Iron Binding 245 Vitamin B12 462 Folate 12.4 Assessment and Plan (1) Family history of cancer Status: Acute 1. This is a 34-year-old woman sent for evaluation of chronic fatigue. Blood work shows normal hemoglobin, normal iron studies and B12 folic acid levels. Patient herself is not concerned about fatigue but states that she is concerned about her family history of breast and colon cancer. I explained to her that inherited cancer syndromes are rather rare and she has just 1 family member with breast cancer and 1 family member with colon cancer which does not fit criteria for inherited cancer syndromes. However, she wanted further evaluation and therefore she was referred for counseling with the genetic counselor via telephone. It is unclear whether this test is recommended at this time or not. I have also discussed that she would have to go through insurance approval unless she wants to pay for the test out of pocket. Patient verbalized understanding, test to be performed pending insurance approval. I thank you for this referral.
--- NOTE | 2020-07-24 11:30 | PC.NURSE ---
Genetic testing faxed over paperwork to gather more information on patient and her family- I called and left a voicemail for her to call me back so we can discuss the questions.
--- NOTE | 2020-08-22 14:04 | MHC.HEMONC ---
Addendum entered by Zoe Dupont 08/22/20 14:07: DOC DENIED - GENETIC TESTING ([id number]) REF ID#:[id number] Original Note: DOC DENIED - GENETIC TESTING ([id number])
--- NOTE | 2020-08-22 14:09 | MHC.HEMONC ---
DOC DENIED - GENETIC TESTING ([id number]) REF ID#:[id number]
== END | disposition home or self-care (01) ==
LOC: HO.ONC 07-17 09:01
PROVIDERS: PCP Internal Medicine; Visit Provider Internal Medicine
DX: R53.82 Chronic fatigue, unspecified (principal); Z80.3 Family history of malignant neoplasm of breast; Z80.0 Family history of malignant neoplasm of digestive organs
CPT/HCPCS: 36415; 82607; 82746; 83540; 85025; 99203